=== PATIENT | male | born 1940 | race Caucasian/White ===

== ENCOUNTER 2022-06-27 16:57 | Inpatient (IN) ==
--- NOTE | 2022-06-27 17:29 | Emergency Department Note ---
Impression & Plan COPD (chronic obstructive pulmonary disease), CHF (congestive heart failure), Dyspnea, Tobacco use ED Provider Note NAME: KERRY BROWN AGE: 81 SEX: M : 1940 ARRIVES VIA: Walk-In INFORMANT: [Patient][, ] ED PROVIDER(S): [Kiko Ramirez MD] Chief Complaint: Shortness of breath HPI: Patient presents due to concern for shortness of breath which is been ongoing approximately 1 week in duration. The patient is accompanied by his daughter who states that this has gotten progressively worse. The patient has had mild productive cough but it is clear sputum. The patient does still smoke a pipe. The patient denies any prior history of COPD. The patient does have prior history of a "minor heart attack" which did not require any stenting or bypass. 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 Patient denies any current chest pains but does complain of exertional dyspnea. No orthopnea. The patient denies any leg swelling or calf pain. No history of DVT or PE. ROS: See HPI for pertinent positives and negatives. A total of 10 systems were reviewed and otherwise negative. Past medical history: See below Surgical history: See below Social history: See below Physical Exam: GENERAL: Mild distress, tachypneic EYE EXAM: Normal conjunctiva. PERRL, no anisocoria and EOM's grossly intact w/o pain. NECK: Supple, no nuchal rigidity, no adenopathy, non-tender. No signs of meningismus. FROM of the neck with good chin to chest and neck extension. No s tridor. LUNGS: Diffuse wheezing throughout, mild tachypnea. HEART: Tachycardic and regular, no MRG. ABDOMEN: Abdomen soft, non-tender, normo-active bowel sounds, no masses, no rebound or guarding. BACK: No CVA TTP. SKIN: No rashes and no bruising. UPPER EXTREMITIES: Upper extremities are grossly normal. LOWER EXTREMITIES: Grossly normal, no edema. NEURO EXAM: A&O x3, cranial nerves II-XII grossly intact, normal speech, moves all 4 extremities. Differential diagnoses: Reactive airway disease, pneumonia, pneumothorax, COPD, CHF, infections, cardiac ischemia, pulmonary embolism, musculoskeletal, gastrointestinal, as well as other pathologies. Course: Patient was seen and evaluated the bedside. Full history physical exam was performed. EKG interpreted by me Sinus tachycardia, rate of 120, normal [place] and QRS, normal axis, no obvious ST elevations. Imaging Studies: See Below Cardiac monitoring: An order was placed for continuous cardiac monitoring. The monitor shows a rate of 105 with tachycardic and regular rhythm. MDM: Patient was seen due to concern for shortness of breath. Blood work is obtained. Patient may have undiagnosed COPD. Patient was ordered IV fluids breathing treatment, IV mag and steroids. COVID test also ordered. Patient's chest x-ray showed concern for pulmonary edema as the patient's IV fluids were stopped. A BNP was added. Patient has a white count of 12 with a normal H&H and platelet count. The patient was ordered Rocephin as there was concern for consolidation seen on his chest x-ray. Patient's VBG did not show any hypercarbia. VBG pH was normal. Patient did have an elevated BUN to creatinine ratio. The patient's initial troponin was 53. The patient did have an elevated BNP greater than 4700. I did speak with the on-call hospitalist and the patient was admitted to the medicine service. Dr. Denney did order the patient Lasix. Past Med/Surg History Medical History Coronary artery disease Surgical History No pertinent past surgical history Social History Smoking Status: Current every day smoker Tobacco Type: Pipe Preferred Language: Japanese Feels Safe at Home: Yes Allergies Allergies Allergy/AdvReac Type Severity Reaction Status Date / Time No Known Allergies Allergy Verified 06/27/22 19:54 Home Meds Home Medications Medication Instructions Recorded Confirmed aspirin 81 mg tablet,delayed 81 mg PO DAILY 06/27/22 06/27/22 release atorvastatin 10 mg tablet 10 mg PO DAILY 06/27/22 06/27/22 lisinopril 20 mg tablet 20 mg PO DAILY 06/27/22 06/27/22 meclizine 25 mg tablet 25 mg PO TID PRN Dizziness 06/27/22 06/27/22 sertraline 50 mg tablet 50 mg PO DAILY 06/27/22 06/27/22 Results & Data (ED) Vital Signs Vital Signs - 24 hr 06/27/22 17:07 06/27/22 17:36 06/27/22 17:36 Temperature 36.3 C L Temperature Source Temporal Artery Scan Pulse Rate 113 H Pulse Rate [Finger] 118 H Pulse Rate from SpO2 Sensor Pulse Rhythm Respiratory Rate 16 29 H Respiratory Effort / Characteristics Non-Labored Respiratory Depth Normal Blood Pressure 159/104 H Blood Pressure [Left Arm] 141/92 H Blood Pressure Mean 122 Blood Pressure Mean [Left Arm] 108 Blood Pressure Position [Left Arm] Sitting Pulse Oximetry 95 94 95 Oxygen Delivery Method Room Air Room Air Room Air Sepsis Recent Fever Within 48 Hours No Sepsis New/Unexplained Change in Mental Status No Sepsis Action Taken by Nursing No Action Required 06/27/22 17:54 06/27/22 19:35 Temperature Temperature Source Pulse Rate 116 H 103 H Pulse Rate [Finger] Pulse Rate from SpO2 Sensor 105 H Pulse Rhythm Regular Respiratory Rate 28 H 24 Respiratory Effort / Characteristics Respiratory Depth Blood Pressure 134/95 Blood Pressure [Left Arm] Blood Pressure Mean 108 Blood Pressure Mean [Left Arm] Blood Pressure Position [Left Arm] Pulse Oximetry 94 97 Oxygen Delivery Method Room Air Room Air Sepsis Recent Fever Within 48 Hours Sepsis New/Unexplained Change in Mental Status Sepsis Action Taken by Usp Medications Current Medication List: was personally reviewed by me Laboratory Data Attestation: I reviewed the patient's lab results. Result diagrams: 06/27/22 18:20 06/27/22 18:20 Lab Results 06/27/22 06/27/22 06/27/22 Range/Units 18:20 18:20 18:20 WBC 12.55 H (4.8-10.8) K/ul RBC 4.98 (4.63-6.08) M/uL Hgb 14.6 (14.0-18.0) g/dl Hct 44.2 (40.1-51.0) % MCV 88.8 (80.0-100.0) fL MCH 29.3 (25.0-34.0) pg MCHC 33.0 (32.0-36.0) g/dL RDW Std Deviation 50.4 H (36.4-46.3) fL RDW Coeff of Yovana 15.5 H (11.5-14.5) % Plt Count 208 (130-400) K/uL MPV 11.3 (9.4-12.4) fL Immature Gran % (Auto) 0.3 % Neut % (Auto) 82.3 % Lymph % (Auto) 7.4 % [place] % (Auto) 9.0 % Eos % (Auto) 0.4 % Baso % (Auto) 0.6 % Neut # (Auto) 10.32 H (1.4-6.5) K/uL Lymph # (Auto) 0.93 L (1.2-3.4) K/uL [place] # (Auto) 1.13 H (0.24-0.82) K/uL Eos # (Auto) 0.05 (0-0.50) K/uL Baso # (Auto) 0.08 (0-0.2) K/uL Immature Gran # (Auto) 0.04 H (0.00-0.02) K/uL PT 12.9 H (9.0-12.0) Seconds INR 1.2 H (0.9-1.1) APTT 29.9 (21.0-31.0) Seconds PTT Ratio 1.1 ABG pH (7.35-7.45) ABG pCO2 (35-46) mmHg ABG pO2 (80-95) mmHg ABG HCO3 (19-24) mmol/L ABG O2 Saturation (90-95) % ABG Base Excess (-9-1.8) mEq/L Kendell Test (Pos) VBG pH (7.36-7.41) VBG pCO2 (38-50) mmHg VBG pO2 mmHg VBG HCO3 mmol/L VBG O2 Saturation % VBG Base Excess mEq/L Oxygen Given Sodium 144 (136-145) mmol/L Potassium 3.9 (3.5-5.1) mmol/L Chloride 114 H (98-107) mmol/L Carbon Dioxide 22 (21-32) mmol/L Anion Gap 8 (3-11) BUN 38 H (6-23) mg/dl Creatinine 1.11 (0.6-1.4) mg/dl Est Cr Clr Drug Dosing 43.7 ml/min Est GFR ( Amer) 71.8 ml/min Est GFR (Non-Af Amer) 61.9 ml/min BUN/Creatinine Ratio 34.2 H (10-20) Glucose 122 H (70-99(Fasting)) mg/dl Lactate (0.4-2.0) mmol/L Calcium 9.2 (8.5-10.1) mg/dl Magnesium 2.0 (1.7-2.4) mg/dl Total Bilirubin 0.6 (0.2-1.0) mg/dl AST 51 H (13-39) U/L ALT 69 H (7-52) U/L Alkaline Phosphatase 78 (34-104) U/L Troponin I High Sens 53.7 H* (0-20) pg/ml B-Natriuretic Peptide (0-100) pg/ml Total Protein 6.7 (6.0-8.3) gm/dl Albumin 3.8 (3.4-5.0) gm/dl Globulin 2.9 (2.5-4.0) gm/dl Albumin/Globulin Ratio 1.3 (0.9-2) Procalcitonin (0-0.5) ng/ml Urine Color Urine Appearance (Clear) Urine pH (4.5-7.5) Ur Specific [place] (1.000-1.030) Urine Protein (Negative) Urine Glucose (UA) (Negative) Urine Ketones (Negative) Urine Blood (Negative) Urine Nitrite (Negative) Urine Bilirubin (Negative) Urine Urobilinogen (Negative) Ur Leukocyte Esterase (Negative) Urine WBC (Auto) (0-5) /hpf Urine RBC (Auto) (0-4) /hpf U Hyaline Cast (Auto) (0-5) /lpf U Epithel Cells (Auto) (0-5) /lpf Urine Bacteria (Auto) (Negative) Ur Renal Epithelial Cell WBC Casts (0) /lpf Urine Mucus (None Prsent) SARS-CoV-2, RNA, NAAT (NEGATIVE) 06/27/22 06/27/22 06/27/22 Range/Units 18:20 18:20 19:34 WBC (4.8-10.8) K/ul RBC (4.63-6.08) M/uL Hgb (14.0-18.0) g/dl Hct (40.1-51.0) % MCV (80.0-100.0) fL MCH (25.0-34.0) pg MCHC (32.0-36.0) g/dL RDW Std Deviation (36.4-46.3) fL RDW Coeff of Yovana (11.5-14.5) % Plt Count (130-400) K/uL MPV (9.4-12.4) fL Immature Gran % (Auto) % Neut % (Auto) % Lymph % (Auto) % [place] % (Auto) % Eos % (Auto) % Baso % (Auto) % Neut # (Auto) (1.4-6.5) K/uL Lymph # (Auto) (1.2-3.4) K/uL [place] # (Auto) (0.24-0.82) K/uL Eos # (Auto) (0-0.50) K/uL Baso # (Auto) (0-0.2) K/uL Immature Gran # (Auto) (0.00-0.02) K/uL PT (9.0-12.0) Seconds INR (0.9-1.1) APTT (21.0-31.0) Seconds PTT Ratio ABG pH (7.35-7.45) ABG pCO2 (35-46) mmHg ABG pO2 (80-95) mmHg ABG HCO3 (19-24) mmol/L ABG O2 Saturation (90-95) % ABG Base Excess (-9-1.8) mEq/L Kendell Test (Pos) VBG pH 7.41 (7.36-7.41) VBG pCO2 36 L (38-50) mmHg VBG pO2 62 mmHg VBG HCO3 23 mmol/L VBG O2 Saturation 93.3 % VBG Base Excess -1.4 mEq/L Oxygen Given Sodium (136-145) mmol/L Potassium (3.5-5.1) mmol/L Chloride (98-107) mmol/L Carbon Dioxide (21-32) mmol/L Anion Gap (3-11) BUN (6-23) mg/dl Creatinine (0.6-1.4) mg/dl Est Cr Clr Drug Dosing ml/min Est GFR ( Amer) ml/min Est GFR (Non-Af Amer) ml/min BUN/Creatinine Ratio (10-20) Glucose (70-99(Fasting)) mg/dl Lactate (0.4-2.0) mmol/L Calcium (8.5-10.1) mg/dl Magnesium (1.7-2.4) mg/dl Total Bilirubin (0.2-1.0) mg/dl AST (13-39) U/L ALT (7-52) U/L Alkaline Phosphatase (34-104) U/L Troponin I High Sens (0-20) pg/ml B-Natriuretic Peptide > 4700 H (0-100) pg/ml Total Protein (6.0-8.3) gm/dl Albumin (3.4-5.0) gm/dl Globulin (2.5-4.0) gm/dl Albumin/Globulin Ratio (0.9-2) Procalcitonin (0-0.5) ng/ml Urine Color Urine Appearance (Clear) Urine pH (4.5-7.5) Ur Specific [place] (1.000-1.030) Urine Protein (Negative) Urine Glucose (UA) (Negative) Urine Ketones (Negative) Urine Blood (Negative) Urine Nitrite (Negative) Urine Bilirubin (Negative) Urine Urobilinogen (Negative) Ur Leukocyte Esterase (Negative) Urine WBC (Auto) (0-5) /hpf Urine RBC (Auto) (0-4) /hpf U Hyaline Cast (Auto) (0-5) /lpf U Epithel Cells (Auto) (0-5) /lpf Urine Bacteria (Auto) (Negative) Ur Renal Epithelial Cell WBC Casts (0) /lpf Urine Mucus (None Prsent) SARS-CoV-2, RNA, NAAT NEGATIVE (NEGATIVE) 06/27/22 06/27/22 06/27/22 Range/Units 20:03 20:03 20:03 WBC (4.8-10.8) K/ul RBC (4.63-6.08) M/uL Hgb (14.0-18.0) g/dl Hct (40.1-51.0) % MCV (80.0-100.0) fL MCH (25.0-34.0) pg MCHC (32.0-36.0) g/dL RDW Std Deviation (36.4-46.3) fL RDW Coeff of Yovana (11.5-14.5) % Plt Count (130-400) K/uL MPV (9.4-12.4) fL Immature Gran % (Auto) % Neut % (Auto) % Lymph % (Auto) % [place] % (Auto) % Eos % (Auto) % Baso % (Auto) % Neut # (Auto) (1.4-6.5) K/uL Lymph # (Auto) (1.2-3.4) K/uL [place] # (Auto) (0.24-0.82) K/uL Eos # (Auto) (0-0.50) K/uL Baso # (Auto) (0-0.2) K/uL Immature Gran # (Auto) (0.00-0.02) K/uL PT (9.0-12.0) Seconds INR (0.9-1.1) APTT (21.0-31.0) Seconds PTT Ratio ABG pH (7.35-7.45) ABG pCO2 (35-46) mmHg ABG pO2 (80-95) mmHg ABG HCO3 (19-24) mmol/L ABG O2 Saturation (90-95) % ABG Base Excess (-9-1.8) mEq/L Kendell Test (Pos) VBG pH (7.36-7.41) VBG pCO2 (38-50) mmHg VBG pO2 mmHg VBG HCO3 mmol/L VBG O2 Saturation % VBG Base Excess mEq/L Oxygen Given Sodium (136-145) mmol/L Potassium (3.5-5.1) mmol/L Chloride (98-107) mmol/L Carbon Dioxide (21-32) mmol/L Anion Gap (3-11) BUN (6-23) mg/dl Creatinine (0.6-1.4) mg/dl Est Cr Clr Drug Dosing ml/min Est GFR ( Amer) ml/min Est GFR (Non-Af Amer) ml/min BUN/Creatinine Ratio (10-20) Glucose (70-99(Fasting)) mg/dl Lactate 0.9 (0.4-2.0) mmol/L Calcium (8.5-10.1) mg/dl Magnesium (1.7-2.4) mg/dl Total Bilirubin (0.2-1.0) mg/dl AST (13-39) U/L ALT (7-52) U/L Alkaline Phosphatase (34-104) U/L Troponin I High Sens 46.1 H (0-20) pg/ml B-Natriuretic Peptide (0-100) pg/ml Total Protein (6.0-8.3) gm/dl Albumin (3.4-5.0) gm/dl Globulin (2.5-4.0) gm/dl Albumin/Globulin Ratio (0.9-2) Procalcitonin < 0.05 (0-0.5) ng/ml Urine Color Urine Appearance (Clear) Urine pH (4.5-7.5) Ur Specific [place] (1.000-1.030) Urine Protein (Negative) Urine Glucose (UA) (Negative) Urine Ketones (Negative) Urine Blood (Negative) Urine Nitrite (Negative) Urine Bilirubin (Negative) Urine Urobilinogen (Negative) Ur Leukocyte Esterase (Negative) Urine WBC (Auto) (0-5) /hpf Urine RBC (Auto) (0-4) /hpf U Hyaline Cast (Auto) (0-5) /lpf U Epithel Cells (Auto) (0-5) /lpf Urine Bacteria (Auto) (Negative) Ur Renal Epithelial Cell WBC Casts (0) /lpf Urine Mucus (None Prsent) SARS-CoV-2, RNA, NAAT (NEGATIVE) 06/27/22 06/27/22 Range/Units 20:41 20:57 WBC (4.8-10.8) K/ul RBC (4.63-6.08) M/uL Hgb (14.0-18.0) g/dl Hct (40.1-51.0) % MCV (80.0-100.0) fL MCH (25.0-34.0) pg MCHC (32.0-36.0) g/dL RDW Std Deviation (36.4-46.3) fL RDW Coeff of Yovana (11.5-14.5) % Plt Count (130-400) K/uL MPV (9.4-12.4) fL Immature Gran % (Auto) % Neut % (Auto) % Lymph % (Auto) % [place] % (Auto) % Eos % (Auto) % Baso % (Auto) % Neut # (Auto) (1.4-6.5) K/uL Lymph # (Auto) (1.2-3.4) K/uL [place] # (Auto) (0.24-0.82) K/uL Eos # (Auto) (0-0.50) K/uL Baso # (Auto) (0-0.2) K/uL Immature Gran # (Auto) (0.00-0.02) K/uL PT (9.0-12.0) Seconds INR (0.9-1.1) APTT (21.0-31.0) Seconds PTT Ratio ABG pH 7.38 (7.35-7.45) ABG pCO2 36 (35-46) mmHg ABG pO2 85 (80-95) mmHg ABG HCO3 21 (19-24) mmol/L ABG O2 Saturation 98.4 H (90-95) % ABG Base Excess -3.3 (-9-1.8) mEq/L Kendell Test Pos (Pos) VBG pH (7.36-7.41) VBG pCO2 (38-50) mmHg VBG pO2 mmHg VBG HCO3 mmol/L VBG O2 Saturation % VBG Base Excess mEq/L Oxygen Given ROOM AIR Sodium (136-145) mmol/L Potassium (3.5-5.1) mmol/L Chloride (98-107) mmol/L Carbon Dioxide (21-32) mmol/L Anion Gap (3-11) BUN (6-23) mg/dl Creatinine (0.6-1.4) mg/dl Est Cr Clr Drug Dosing ml/min Est GFR ( Amer) ml/min Est GFR (Non-Af Amer) ml/min BUN/Creatinine Ratio (10-20) Glucose (70-99(Fasting)) mg/dl Lactate (0.4-2.0) mmol/L Calcium (8.5-10.1) mg/dl Magnesium (1.7-2.4) mg/dl Total Bilirubin (0.2-1.0) mg/dl AST (13-39) U/L ALT (7-52) U/L Alkaline Phosphatase (34-104) U/L Troponin I High Sens (0-20) pg/ml B-Natriuretic Peptide (0-100) pg/ml Total Protein (6.0-8.3) gm/dl Albumin (3.4-5.0) gm/dl Globulin (2.5-4.0) gm/dl Albumin/Globulin Ratio (0.9-2) Procalcitonin (0-0.5) ng/ml Urine Color Yellow Urine Appearance Clear (Clear) Urine pH 5.0 (4.5-7.5) Ur Specific [place] 1.014 (1.000-1.030) Urine Protein Trace H (Negative) Urine Glucose (UA) Negative (Negative) Urine Ketones Negative (Negative) Urine Blood Negative (Negative) Urine Nitrite Negative (Negative) Urine Bilirubin Negative (Negative) Urine Urobilinogen Negative (Negative) Ur Leukocyte Esterase 2+ H (Negative) Urine WBC (Auto) 10-30 H (0-5) /hpf Urine RBC (Auto) 0-4 (0-4) /hpf U Hyaline Cast (Auto) >30 H (0-5) /lpf U Epithel Cells (Auto) >30 H (0-5) /lpf Urine Bacteria (Auto) Negative (Negative) Ur Renal Epithelial Cell Not Reportable WBC Casts 20-30 H (0) /lpf Urine Mucus Present A (None Prsent) SARS-CoV-2, RNA, NAAT (NEGATIVE) Administered Medications Discontinued Medications Albuterol (Albut/Ipratrop 3mg/0.5mg Neb 3 Ml Vial) 12 ml INH ONE STA Stop: 06/27/22 17:41 Last Admin: 06/27/22 18:20 Dose: 12 ml Documented By: LESLIE Furosemide (Furosemide 40 Mg/4 Ml Vial) 40 mg IV ONE ONE Stop: 06/27/22 19:44 Last Admin: 06/27/22 20:07 Dose: 40 mg Documented By: Sodium Chloride (Nss 1000ml) 1,000 mls @ 999 mls/hr IV .Q1H1M FRANCISCO Stop: 06/27/22 18:45 Last Admin: 06/27/22 18:37 Dose: Not Given Documented By: LESLIE Magnesium Sulfate/Dextrose (Magnesium Sulfate / D5w) 1 gm in 100 mls @ 100 mls/hr IV Q1H FRANCISCO Stop: 06/27/22 19:44 Last Infusion: 06/27/22 20:30 Dose: 0 mls/hr Documented By: Admin: 06/27/22 19:29 Dose: 100 mls/hr Documented By: Infusion: 06/27/22 19:21 Dose: 100 mls/hr Documented By: Admin: 06/27/22 18:21 Dose: 100 mls/hr Documented By: HEW Ceftriaxone Sodium (Rocephin) 2,000 mg in 70 mls @ 140 mls/hr IV NOW STA Stop: 06/27/22 18:54 Last Infusion: 06/27/22 21:58 Dose: 0 mls/hr Documented By: Admin: 06/27/22 21:06 Dose: 140 mls/hr Documented By: Lorazepam (Lorazepam 2 Mg/1 Ml Vial) 0.25 mg IV NOW STA; Protocol Stop: 06/27/22 17:41 Last Admin: 06/27/22 18:37 Dose: 0.25 mg Documented By: LESLIE Methylprednisolone (Methylprednisolone 125 Mg/2 Ml Vial) 125 mg IV NOW STA Stop: 06/27/22 17:41 Last Admin: 06/27/22 18:21 Dose: 125 mg Documented By: LESLIE Potassium Chloride (Potassium Chloride Crtab 20 Meq Tabcr) 20 meq PO NOW STA Stop: 06/27/22 19:44 Last Admin: 06/27/22 20:11 Dose: 20 meq Documented By: Imaging Data Radiologist's Impression: Chest X-Ray 06/27/22 17:41 XR chest 1V portable HISTORY: 81 years-old Male Dyspnea acute shortness of breath COMPARISON: Chest radiograph 04/29/2021 TECHNIQUE: Portable AP view of the chest FINDINGS: Cardiac silhouette is enlarged. Pulmonary vascular congestion with interstitial coarsening. Layering pleural effusions with right greater left bibasilar and right midlung consolidation. Degenerative changes of the shoulders and spine. IMPRESSION: 1. Cardiomegaly with pulmonary edema. 2. Bilateral pleural effusions with right greater than left bibasilar and right midlung consolidation. ACT 112: Negative or not required by law. The above report was generated using voice recognition software. It may contain grammatical, syntax or spelling errors. Electronically signed by: Pramod Browning M.D. 06/27/2022 6:12 PM Discharge Plan Visit Data Chief Complaint: Anxiety Stated Complaint: SOB, SHAKING, DIZZY, HEADAACHE ED Provider: Kiko Ramirez Discharge Problem: COPD (chronic obstructive pulmonary disease), CHF (congestive heart failure), Dyspnea, Tobacco use Patient Disposition: Admitted As Inpatient Forms Stand Alone Forms: [facility], Suicide Prevention Resources Prescriptions Prescriptions: No Action atorvastatin 10 mg tablet 10 mg PO DAILY lisinopril 20 mg tablet 20 mg PO DAILY meclizine 25 mg tablet 25 mg PO TID PRN (Reason: Dizziness) sertraline 50 mg tablet 50 mg PO DAILY aspirin 81 mg Tablet,Delayed Release (Dr/Ec) 81 mg PO DAILY Referrals Referrals: Triston Spears DO [Primary Care Provider] -
[2022-06-27] MEDS ORDERED: ALBUT/IPRATROP 3MG/0.5MG NEB 3 ML VIAL INH STA (17:40)
[2022-06-27] MEDS ORDERED: methylPREDNISolone 125 MG/2 ML VIAL IV STA (17:40)
[2022-06-27] MEDS ORDERED: LORazepam 2 MG/1 ML VIAL IV STA (17:40)
[2022-06-27] MEDS ORDERED: SODIUM CHLORIDE 0.9% 1000ML 1,000 ML IV SCH (17:45)
--- NOTE | 2022-06-27 18:13 | XRay Report ---
XR chest 1V portable HISTORY: 81 years-old Male Dyspnea acute shortness of breath COMPARISON: Chest radiograph 04/29/2021 TECHNIQUE: Portable AP view of the chest FINDINGS: Cardiac silhouette is enlarged. Pulmonary vascular congestion with interstitial coarsening. Layering pleural effusions with right greater left bibasilar and right midlung consolidation. Degenerative jessie nges of the shoulders and spine. IMPRESSION: 1. Cardiomegaly with pulmonary edema. 2. Bilateral pleural effusions with right greater than left bibasilar and right midlung consolidation . ACT 112: Negative or not required by law. The above report was generated using voice recognition software. It may contain grammatical, syntax o r spelling errors. Electronically signed by: Pramod Browning M.D. 06/27/2022 6:12 PM
[2022-06-27] MEDS: MAGNESIUM SULFATE / D5W 1 GM/100 ML BAG IV SCH ×2 (18:21→19:29)
[2022-06-27 18:29] LABS: Base Excess VBG -1.4 mEq/L; HCO3 VBG 23 mmol/L; Oxygen Saturation VBG 93.3 %; PCO2 VBG 36 mmHg (38-50); PO2 VBG 62 mmHg; pH VBG 7.41 (7.36-7.41)
[2022-06-27 18:33] LABS: Basophils # (auto) 0.08 K/uL (0-0.2); Basophils % (auto) 0.6 %; Eosinophils # (auto) 0.05 K/uL (0-0.50); Eosinophils % (auto) 0.4 %; Hematocrit (blood only) 44.2 % (40.1-51.0); Hemoglobin 14.6 g/dl (14.0-18.0); Immature Granulocytes # (auto) 0.04 K/uL (0.00-0.02); Immature Granulocytes % (auto) 0.3 %; Lymphocytes # (auto) 0.93 K/uL (1.2-3.4); Lymphocytes % (auto) 7.4 %; Mean Corpuscular Hemoglobin 29.3 pg (25.0-34.0); Mean Corpuscular Volume 88.8 fL (80.0-100.0); Mean Platelet Volume 11.3 fL (9.4-12.4); Monocytes # (auto) 1.13 K/uL (0.24-0.82); Neutrophils # (auto) 10.32 K/uL (1.4-6.5); Neutrophils % (auto) 82.3 %; Platelet Count 208 K/uL (130-400); RDW Coefficient of Variation 15.5 % (11.5-14.5); RDW Standard Deviation 50.4 fL (36.4-46.3); Red Blood Count 4.98 M/uL (4.63-6.08); White Blood Count 12.55 K/ul (4.8-10.8)
[2022-06-27 18:41] LABS: INR 1.2 (0.9-1.1); Partial Thromboplastin Ratio 1.1; Partial Thromboplastin Time 29.9 Seconds (21.0-31.0); Prothrombin Time 12.9 Seconds (9.0-12.0)
[2022-06-27 18:49] LABS: Albumin Globulin Ratio 1.3 (0.9-2); Albumin Level 3.8 gm/dl (3.4-5.0); BUN Creatinine Ratio 34.2 (10-20); Bilirubin,Total 0.6 mg/dl (0.2-1.0); Calcium 9.2 mg/dl (8.5-10.1); Creatinine Clr Calc Pharmacy 43.7 ml/min; Est GFR (African American) 71.8 ml/min; Est GFR (Non-African American) 61.9 ml/min; Globulin 2.9 gm/dl (2.5-4.0); Potassium 3.9 mmol/L (3.5-5.1); Total Protein 6.7 gm/dl (6.0-8.3)
[2022-06-27 18:58] LABS: Troponin I High Sensitivity 53.7 pg/ml (0-20)
[2022-06-27] MEDS ORDERED: POTASSIUM CHLORIDE CRTAB 20 MEQ TABCR PO STA (19:43)
[2022-06-27] MEDS ORDERED: FUROSEMIDE 40 MG/4 ML VIAL IV ONE (19:43)
[2022-06-27] MEDS: cefTRIAXone SODIUM 2,000 MG/70 ML BAG IV STA ×2 (20:32→21:06)
[2022-06-27 21:04] LABS: Base Excess ABG -3.3 mEq/L (-9-1.8); HCO3 ABG 21 mmol/L (19-24); Oxygen Saturation ABG 98.4 % (90-95); PCO2 ABG 36 mmHg (35-46); PO2 ABG 85 mmHg (80-95); pH ABG 7.38 (7.35-7.45)
[2022-06-27 21:08] LABS: Allen Test Pos (Pos)
[2022-06-27 21:09] LABS: Appearance Urine Clear (Clear); Bacteria Urine Automated Negative (Negative); Bilirubin Urine Negative (Negative); Blood Urine Negative (Negative); Color Urine Yellow; Epithelial Cell Urine Auto >30 /lpf (0-5); Glucose Urine UA Negative (Negative); Ketones Urine Negative (Negative); Leukocyte Esterase Urine 2+ (Negative); Nitrite Urine Negative (Negative); Protein Urine Trace (Negative); RBC Urine Automated 0-4 /hpf (0-4); Specific Gravity Urine 1.014 (1.000-1.030); Urobilinogen Urine Negative (Negative)
[2022-06-27 21:21] LABS: Mucus Urine Present (None Prsent)
[2022-06-27 21:22] LABS: Cast Urine Automated >30 /lpf (0-5); White Blood Cell Casts Urine 20-30 /lpf (0)
--- NOTE | 2022-06-27 21:37 | History & Physical Report ---
Date of Service June 27, 2022 Assessment & Plan (1) Acute hypoxemic respiratory failure: Plan: Secondary to acute CHF ? Precipitated by viral bronchitis hx CAD status post stent, last outpatient follow-up with [facility] program engineer was in 2012 hypertension, slight elevated hyperlipidemia, on statin Rx hx beta-shanna intolerance (bradycardia) as per records Hyperglycemia likely secondary to prediabetes, hemoglobin A1c of 5.7 from 2009 ongoing tobacco abuse PCU Supplemental O2 Baseline ABG Diuretic Rx strict I/Os, daily weights, CHF education Initiate low-dose beta-shanna if heart rate continues to be uncontrolled TTE, Cardiology consult Re: CHF supportive management for presumptive viral bronchitis Update hemoglobin A1c DVT prophylaxis. Lovenox subcu Full code Patient daughter requesting updates from providers. Ms. Carolyn Burroughs, contact #[phone]. Total critical care time was 40 minutes. Text document was generated using [employer]ösler mini[employer] voice recognition software. It may contain grammatical or spelling errors. Kindly contact undersigned for clarification of any documentation item in question. History of Present Illness Chief Complaint: Shortness of breath Primary Care Provider: Triston Spears, History obtained from patient, family, and records. Medical history significant for CAD status post stent, hypertension, hyperlipidemia, beta-shanna intolerance (bradycardia) as per records, ongoing tobacco abuse. 1 week history of cough symptoms productive of clear sputum. No chest pain. Worsening shortness of breath. No unusual fluid retention. No known recent sick contacts. Patient completed COVID-19 vaccination. Patient received Albuterol, methylprednisolone, and ceftriaxone at the ER for possible COPD exacerbation. Lorazepam given for anxiety. Patient currently lethargic. O2 sats noted to be 80s on room air. Medical History as above Surgical History : Leg fracture surgery Family History : Heart disease Personal/Social history : Ongoing tobacco pipe use, no EtOH intake, retired factory employee Allergies Allergy/AdvReac Type Severity Reaction Status Date / Time No Known Allergies Allergy Verified 06/27/22 19:54 Home Medications Medication Instructions Recorded Confirmed Type aspirin 81 mg tablet,delayed 81 mg PO DAILY 06/27/22 06/27/22 History release atorvastatin 10 mg tablet 10 mg PO DAILY 06/27/22 06/27/22 History lisinopril 20 mg tablet 20 mg PO DAILY 06/27/22 06/27/22 History meclizine 25 mg tablet 25 mg PO TID PRN Dizziness 06/27/22 06/27/22 History sertraline 50 mg tablet 50 mg PO DAILY 06/27/22 06/27/22 History Past Med/Surg History Medical History Coronary artery disease Surgical History No pertinent past surgical history Social History Smoking Status: Heavy tobacco smoker Tobacco Type: Pipe Second Hand Exposure: No; Do You Dip or Chew Tobacco: No; Tobacco Cessation Education Requested by Patient: Yes Hx Alcohol Use: No Hx Substance Use: No Preferred Language: Setswana Communication Ability: Effective Patient Representative Required: No Beliefs That Will Affect Care: None Current Living Situation: Alone Other Information That Helps Us Care for You: No Feels Safe at Home: Yes Safety Concerns: Feels Safe At This Time Assistive Devices: Glasses Review of Systems Review of Systems: Could not be reliably obtained secondary to lethargy and hearing impairment Physical Exam Physical Exam: GENERAL: Lethargic, slightly hard of hearing, minimal respiratory distress SKIN: Normal color, warm HEENT: [place] palpebral conjunctivae, no ptosis, dry buccal mucosa, nasal cannula in place NECK : Supple, no tenderness CHEST : Decreased breath sounds, expiratory wheezes, no tenderness HEART : Tachycardic, no obvious murmurs ABDOMEN: Some distention, nontender EXTREMITIES : No LE swelling, no LE tenderness, no other conspicuous deformities noted NEUROLOGIC : Lethargic, no facial asymmetry, gait and stance not assessed Results & Data Results & Data ([facility]) Vital Signs (Past 12 Hours) Vital Signs Temp Pulse Pulse Resp BP BP Pulse Ox 06/27/22 19:35 103 H 24 134/95 97 06/27/22 17:54 116 H 28 H 94 06/27/22 17:36 118 H 29 H 141/92 H 95 06/27/22 17:36 94 06/27/22 17:07 36.3 C L 113 H 16 159/104 H 95 O2 Del Method 06/27/22 19:35 Room Air 06/27/22 17:54 Room Air 06/27/22 17:36 Room Air 06/27/22 17:36 Room Air 06/27/22 17:07 Room Air Laboratory Results Laboratory Results WBC 12.55 K/ul (4.8-10.8) H 06/27/22 18:20 RBC 4.98 M/uL (4.63-6.08) 06/27/22 18:20 Hgb 14.6 g/dl (14.0-18.0) 06/27/22 18:20 Hct 44.2 % (40.1-51.0) 06/27/22 18:20 MCV 88.8 fL (80.0-100.0) 06/27/22 18:20 MCH 29.3 pg (25.0-34.0) 06/27/22 18:20 MCHC 33.0 g/dL (32.0-36.0) 06/27/22 18:20 RDW Std Deviation 50.4 fL (36.4-46.3) H 06/27/22 18:20 RDW Coeff of Yovana 15.5 % (11.5-14.5) H 06/27/22 18:20 Plt Count 208 K/uL (130-400) 06/27/22 18:20 MPV 11.3 fL (9.4-12.4) 06/27/22 18:20 Immature Gran % (Auto) 0.3 % 06/27/22 18:20 Neut % (Auto) 82.3 % 06/27/22 18:20 Lymph % (Auto) 7.4 % 06/27/22 18:20 Bucks % (Auto) 9.0 % 06/27/22 18:20 Eos % (Auto) 0.4 % 06/27/22 18:20 Baso % (Auto) 0.6 % 06/27/22 18:20 Neut # (Auto) 10.32 K/uL (1.4-6.5) H 06/27/22 18:20 Lymph # (Auto) 0.93 K/uL (1.2-3.4) L 06/27/22 18:20 Bucks # (Auto) 1.13 K/uL (0.24-0.82) H 06/27/22 18:20 Eos # (Auto) 0.05 K/uL (0-0.50) 06/27/22 18:20 Baso # (Auto) 0.08 K/uL (0-0.2) 06/27/22 18:20 Immature Gran # (Auto) 0.04 K/uL (0.00-0.02) H 06/27/22 18:20 PT 12.9 Seconds (9.0-12.0) H 06/27/22 18:20 INR 1.2 (0.9-1.1) H 06/27/22 18:20 APTT 29.9 Seconds (21.0-31.0) 06/27/22 18:20 PTT Ratio 1.1 06/27/22 18:20 ABG pH 7.38 (7.35-7.45) 06/27/22 20:57 ABG pCO2 36 mmHg (35-46) 06/27/22 20:57 ABG pO2 85 mmHg (80-95) 06/27/22 20:57 ABG HCO3 21 mmol/L (19-24) 06/27/22 20:57 ABG O2 Saturation 98.4 % (90-95) H 06/27/22 20:57 ABG Base Excess -3.3 mEq/L (-9-1.8) 06/27/22 20:57 Kendell Test Pos (Pos) 06/27/22 20:57 VBG pH 7.41 (7.36-7.41) 06/27/22 18:20 VBG pCO2 36 mmHg (38-50) L 06/27/22 18:20 VBG pO2 62 mmHg 06/27/22 18:20 VBG HCO3 23 mmol/L 06/27/22 18:20 VBG O2 Saturation 93.3 % 06/27/22 18:20 VBG Base Excess -1.4 mEq/L 06/27/22 18:20 Oxygen Given ROOM AIR 06/27/22 20:57 Sodium 144 mmol/L (136-145) 06/27/22 18:20 Potassium 3.9 mmol/L (3.5-5.1) 06/27/22 18:20 Chloride 114 mmol/L (98-107) H 06/27/22 18:20 Carbon Dioxide 22 mmol/L (21-32) 06/27/22 18:20 Anion Gap 8 (3-11) 06/27/22 18:20 BUN 38 mg/dl (6-23) H 06/27/22 18:20 Creatinine 1.11 mg/dl (0.6-1.4) 06/27/22 18:20 Est Cr Clr Drug Dosing 43.7 ml/min 06/27/22 18:20 Est GFR ( Amer) 71.8 ml/min 06/27/22 18:20 Est GFR (Non-Af Amer) 61.9 ml/min 06/27/22 18:20 BUN/Creatinine Ratio 34.2 (10-20) H 06/27/22 18:20 Glucose 122 mg/dl (70-99(Fasting)) H 06/27/22 18:20 Lactate 0.9 mmol/L (0.4-2.0) 06/27/22 20:03 Calcium 9.2 mg/dl (8.5-10.1) 06/27/22 18:20 Magnesium 2.0 mg/dl (1.7-2.4) 06/27/22 18:20 Total Bilirubin 0.6 mg/dl (0.2-1.0) 06/27/22 18:20 AST 51 U/L (13-39) H 06/27/22 18:20 ALT 69 U/L (7-52) H 06/27/22 18:20 Alkaline Phosphatase 78 U/L (34-104) 06/27/22 18:20 Troponin I High Sens 46.1 pg/ml (0-20) H 06/27/22 20:03 B-Natriuretic Peptide > 4700 pg/ml (0-100) H 06/27/22 18:20 Total Protein 6.7 gm/dl (6.0-8.3) 06/27/22 18:20 Albumin 3.8 gm/dl (3.4-5.0) 06/27/22 18:20 Globulin 2.9 gm/dl (2.5-4.0) 06/27/22 18:20 Albumin/Globulin Ratio 1.3 (0.9-2) 06/27/22 18:20 Procalcitonin < 0.05 ng/ml (0-0.5) 06/27/22 20:03 Urine Color Yellow 06/27/22 20:41 Urine Appearance Clear (Clear) 06/27/22 20:41 Urine pH 5.0 (4.5-7.5) 06/27/22 20:41 Ur Specific [place] 1.014 (1.000-1.030) 06/27/22 20:41 Urine Protein Trace (Negative) H 06/27/22 20:41 Urine Glucose (UA) Negative (Negative) 06/27/22 20:41 Urine Ketones Negative (Negative) 06/27/22 20:41 Urine Blood Negative (Negative) 06/27/22 20:41 Urine Nitrite Negative (Negative) 06/27/22 20:41 Urine Bilirubin Negative (Negative) 06/27/22 20:41 Urine Urobilinogen Negative (Negative) 06/27/22 20:41 Ur Leukocyte Esterase 2+ (Negative) H 06/27/22 20:41 Urine WBC (Auto) 10-30 /hpf (0-5) H 06/27/22 20:41 Urine RBC (Auto) 0-4 /hpf (0-4) 06/27/22 20:41 U Hyaline Cast (Auto) >30 /lpf (0-5) H 06/27/22 20:41 U Epithel Cells (Auto) >30 /lpf (0-5) H 06/27/22 20:41 Urine Bacteria (Auto) Negative (Negative) 06/27/22 20:41 Ur Renal Epithelial Cell Not Reportable 06/27/22 20:41 WBC Casts 20-30 /lpf (0) H 06/27/22 20:41 Urine Mucus Present (None Prsent) A 06/27/22 20:41 SARS-CoV-2, RNA, NAAT NEGATIVE (NEGATIVE) 06/27/22 19:34 Impressions Chest X-Ray 06/27/22 17:41 XR chest 1V portable HISTORY: 81 years-old Male Dyspnea acute shortness of breath COMPARISON: Chest radiograph 04/29/2021 TECHNIQUE: Portable AP view of the chest FINDINGS: Cardiac silhouette is enlarged. Pulmonary vascular congestion with interstitial coarsening. Layering pleural effusions with right greater left bibasilar and right midlung consolidation. Degenerative changes of the shoulders and spine. IMPRESSION: 1. Cardiomegaly with pulmonary edema. 2. Bilateral pleural effusions with right greater than left bibasilar and right midlung consolidation. ACT 112: Negative or not required by law. The above report was generated using voice recognition software. It may contain grammatical, syntax or spelling errors. Electronically signed by: Pramod Browning M.D. 06/27/2022 6:12 PM Diagnostic Findings EKG as per my interpretation : Rate 120, sinus tachycardia, normal axis, T wave flattening lateral leads Code Status & VTE Plan VTE Prophylaxis Plan VTE Prophylaxis will be ordered: Yes
[2022-06-28] MEDS ORDERED: traMADol HCL 50 MG TABLET PO PRN (00:16)
[2022-06-28] MEDS ORDERED: ACETAMINOPHEN 325 MG TAB PO PRN (00:16)
[2022-06-28] MEDS ORDERED: NITROGLYCERIN SL 0.4 MG/TAB TAB SL PRN (00:16)
[2022-06-28] MEDS ORDERED: PROMETHAZINE HCL 6.25 MG in SODIUM CHLORIDE 0.9% 50 ML IV PRN (00:16)
[2022-06-28 06:19] LABS: Hematocrit (blood only) 40.3 % (40.1-51.0); Hemoglobin 13.6 g/dl (14.0-18.0); Mean Corpuscular Hemoglobin 29.4 pg (25.0-34.0); Mean Corpuscular Hgb Conc 33.7 g/dL (32.0-36.0); Mean Platelet Volume 11.4 fL (9.4-12.4); Platelet Count 197 K/uL (130-400); RDW Coefficient of Variation 15.3 % (11.5-14.5); RDW Standard Deviation 48.3 fL (36.4-46.3); Red Blood Count 4.63 M/uL (4.63-6.08); White Blood Count 7.36 K/ul (4.8-10.8)
[2022-06-28] MEDS ORDERED: IPRATROPIUM BROMIDE NEB SOLN 0.02% 2.5 ML VIAL INH STA (06:25)
[2022-06-28] MEDS ORDERED: METOPROLOL TARTRATE 25 MG TAB PO SCH (06:25)
[2022-06-28] MEDS ORDERED: LEVALBUTEROL 1.25MG/0.5ML NEB INH STA (06:25)
[2022-06-28] MEDS ORDERED: XOPENEX/ATROVENT 1.25mg/0.5MG NEB COMBO NEB STA (06:25)
[2022-06-28] MEDS ORDERED: FUROSEMIDE 40 MG/4 ML VIAL IV ONE ×3 (06:30→16:17)
[2022-06-28 06:51] LABS: Calcium 8.7 mg/dl (8.5-10.1); Est GFR (African American) 84.5 ml/min; Est GFR (Non-African American) 72.9 ml/min; Potassium 3.6 mmol/L (3.5-5.1)
[2022-06-28 06:53] LABS: Basophils # (auto) 0.01 K/uL (0-0.2); Basophils % (auto) 0.1 %; Immature Granulocytes # (auto) 0.02 K/uL (0.00-0.02); Immature Granulocytes % (auto) 0.3 %; Lymphocytes # (auto) 0.36 K/uL (1.2-3.4); Lymphocytes % (auto) 4.9 %; Monocytes # (auto) 0.27 K/uL (0.24-0.82); Monocytes % (auto) 3.7 %
--- NOTE | 2022-06-28 07:16 | CT Scan Report ---
HEAD CT NONCONTRAST CT DOSE: 614.27 mGy.cm HISTORY: Headache. TECHNIQUE: Multiaxial CT images of the head were performed without the use of intravenous contrast. A utomated exposure control was utilized for this study. A dose lowering technique was utilized adheri ng to the principles of ALARA. Comparison: Head CT 05/25/2011. Findings: The paranasal sinuses and mastoid air cells are clear. The calvarium and skull base are int act. There is no mass, hematoma, midline shift, acute infarct. White matter hypodensity is nonspecifi c but suggestive of microvascular ischemic change. The ventricles and sulci demonstrate mild age-rela osman involutional changes. Impression: No acute intracranial abnormality. ACT 112: Negative or not required by law. Electronically signed by: Cole Quintana M.D. 06/28/2022 7:14 AM
[2022-06-28] MEDS ORDERED: POTASSIUM CHLORIDE CRTAB 20 MEQ TABCR PO STA (07:47)
[2022-06-28] MEDS: ATORVASTATIN 10 MG TAB PO SCH (08:08)
[2022-06-28] MEDS: ASPIRIN 81 MG ECTAB PO SCH (08:09)
[2022-06-28] MEDS: ENOXAPARIN INJ 40 MG/0.4 ML SYR SQ SCH (08:10)
[2022-06-28] MEDS: SERTRALINE HCL 50 MG TABLET PO SCH (08:10)
[2022-06-28] MEDS ORDERED: lisinopril 20 MG TAB PO SCH (09:00)
--- NOTE | 2022-06-28 09:07 | Cardiology Consultation ---
Date of Consultation June 28, 2022 Supervising Physician Attestation: I have personally performed a history and physical examination on the patient. I agree with the physician accounting assistant's findings and plan as documented with the following additions. Subjective: At the time of my assessment, patient with perhaps a subtle degree of worsening respiratory distress than that which was noted earlier this morning. Audible expiratory wheezing noted, conversational dyspnea, tachypnea. Oxygen saturation low 90s on room air. Systolic blood pressure in the upper 90s. Exam: Pulmonary: Coarse expiratory wheezing Cardiovascular: Regular rhythm, 1/6 systolic murmur, no edema Data: Echocardiogram performed today with moderate left ventricular chamber enlarg ement, diffuse hypokinesis to akinesis, LVEF 20 to 25%, moderate bilateral pleural effusions, moderate mitral regurgitation EKG performed 06/28/2022, 12:25 AM, interpreted independently: Sinus tachycardia 102 bpm age-indeterminate inferior infarct pattern. Nonspecific diffuse repolarization changes. Assessment and Plan: Likely multifactorial respiratory insufficiency. Acute heart failure with preserved ejection fraction, exam also suggestive of underlying pulmonary process. Has a reported history of heavy tobacco use. -Patient received IV Solu-Medrol on presentation yesterday, and is on inhaled bronchodilators, oral prednisone. Doxycycline. Received a dose of oral furosemide overnight last night, and again with dose of 40 mg earlier this morning. Peña catheter placed at the time of my assessment, and in follow-up, about 200 mL of urine output noted over the last 2 hours. Although creatinine has trended up slightly from admission, 1.1, to 1.3, will proceed with another dose of furosemide 40 mg x 1 now, 1600. -Presentation is not suggestive of an acute coronary syndrome. Uncertain how long his LV systolic dysfunction has been present, but appears to be an acute recognition of a chronic indolent problem. DVT prophylaxis: Agree with subcutaneous Lovenox for DVT prophylaxis. Dwight Fitzpatrick, DO Assessment & Plan (1) Acute hypoxemic respiratory failure: (2) COPD (chronic obstructive pulmonary disease): (3) Acute on chronic systolic HF (heart failure): (4) Atrial tachycardia, paroxysmal: (5) Paroxysmal VT: Plan Patient admitted for SOB/hypoxia, acute respiratory failure, likely multifactorial with acute on chronic HFrEF (new diagnosis, but duration unknown), COPD exacerbation with possible underlying pneumonia. Patient's respiratory status improving this morning after therapies including Antibiotics, steroids, nebs and IV furosemide. Prelim Echo report reveals severely reduced LVEF at 20%. Last echo per review of inpatient/outpatient records was in 2002 with normal LVEF and old inferior wall TN. He was tachycardic on admission, now improving but having frequent atr ial/ventricular ectopy and non sustained runs of atrial tach and VT. Supplement potassium and magnesium. Recheck levels at noon. He was started on low dose metoprolol tartrate by hospitalist. Given reduced LVEF, transition to metoprolol succinate 12.5 mg BID and titrate as tolerated. He has a chart history of bradycardia, so will only initiate low dose and monitor HR's. Continue lisinopril. Repeat chest xray ordered. Likely will need additional IV furosemide this afternoon. Received most recent dose at 7:00 AM this morning. Monitor I+O's. 1500 ml fluid restriction. Daily weight with standing scale. Consider initiation of spironolactone as well Continue ASA, statin, lisinopril (home meds) for underlying ischemic heart disease. HS troponin minimally elevated, not indicated of acute ACS, but consistent with respiratory failure, hypoxia and CHF exacerbation. Case to be discussed with Dr. Fitzpatrick. History of Present Illness Reason for Consultation: SOB Requesting Physician: Dr. Leo Attending Physician: Dr. Fitzpatrick History of Present Illness Patient is an 81 year old male who was previously followed 20 years ago by [facility], Dr. Mckinney. Since that time, he was evaluated on one occasion in [address] Pugh. History includes: 1. remote history of CAD s/p inferior wall TN 20 + years ago. No coronary intervention at that time or medical management. Stress echo in 2002 with basal inferior wall hypokinesis, preserved LVEF and without valvular disease. 2. Dyslipidemia with statin intolerance. Tolerating low dose atorvastatin 3. Hypertension 4. Tobacco abuse Patient is a poor historian. Admission notes reviewed. Came to ER for worsening SOB/dyspnea/cough/wheeze. Chest xray consistent with possible consolidation and b/l pleural effusions. Started on antibiotics, nebs, steroids, and several doses of furosemide. EKG demonstrating sinus tach with frequent atrial ectopy. HS troponin minimally elevated, consistent with acute respiratory distress/hypoxia. Patient denied chest pain on arrival. At time of consult, patient resting in bed. He feels "good". Wants to get out of bed and "do something". Expiratory wheeze audible. Patient reports ongoing cough, but at baseline. He denies SOB or CP. No orthopnea, PND or edema. No fever or chills. No palpitations. No dizziness. This morning he had 1 non sustained run of possible atrial tach lasting approx 10-15 seconds. He also had 1 non sustained run of VT, about 6 beats. Given additional potassium supplement. Started on low dose metoprolol tartrate 12.5 mg BID. Given additional dose of IV furosemide this morning as well. He currently denies acute complaints. Allergies Allergy/AdvReac Type Severity Reaction Status Date / Time No Known Allergies Allergy Verified 06/27/22 19:54 Home Medications Medication Instructions Recorded Confirmed Type aspirin 81 mg tablet,delayed 81 mg PO DAILY 06/27/22 06/27/22 History release atorvastatin 10 mg tablet 10 mg PO DAILY 06/27/22 06/27/22 History lisinopril 20 mg tablet 20 mg PO DAILY 06/27/22 06/27/22 History meclizine 25 mg tablet 25 mg PO TID PRN Dizziness 06/27/22 06/27/22 History sertraline 50 mg tablet 50 mg PO DAILY 06/27/22 06/27/22 History Patient History Medical History Coronary artery disease Surgical History No pertinent past surgical history Social History Smoking Status: Heavy tobacco smoker Tobacco Type: Pipe Second Hand Exposure: No; Do You Dip or Chew Tobacco: No; Tobacco Cessation Education Requested by Patient: Yes Hx Alcohol Use: No Hx Substance Use: No Preferred Language: Ukrainian Communication Ability: Effective 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 Beliefs That Will Affect Care: None Current Living Situation: Alone Other Information That Helps Us Care for You: No Feels Safe at Home: Yes Safety Concerns: Feels Safe At This Time Assistive Devices: None Review of Systems Review of Systems: All systems reviewed & are unremarkable except as noted in HPI & below Physical Exam Physical Exam: Temp Pulse Resp BP Pulse Ox O2 Del Method O2 Flow Rate 36.5 C 89 18 96/69 L 94 2 06/28/22 13:00 06/28/22 13:00 06/28/22 13:00 06/28/22 13:00 06/28/22 13:00 06/28/22 13:00 06/28/22 11:20 Constitutional: well developed; no acute distress Neck: trachea midline, no thyromegaly Respiratory: + audible wheezes; no respiratory distress and no labored breathing Auscultation: + diminished lung sounds (bases b/l) and + wheezes (expiratory b/l) Cardiovascular: Rate/Rhythm: regular rate and regular rhythm (with ectopy) Heart Sounds: normal S1 and normal S2; no murmur Vessels: no JVD Extremities: no edema Gastrointestinal (Abdomen): normal bowel sounds, soft, nontender, no hepatosplenomegaly Skin: no rashes, warm and dry Neurologic: PERRL, EOMI, accommodation nl, no face palsy, no dysarthria Psychiatric: A+Ox3, euthymic affect Results & Data ([facility]) Vital Signs (Past 12 Hours) V Laboratory Results Cardiac Enzymes 06/27/22 06/27/22 06/27/22 Range/Units 18:20 18:20 20:03 AST 51 H (13-39) U/L Troponin I High Sens 53.7 H* 46.1 H (0-20) pg/ml B-Natriuretic Peptide > 4700 H (0-100) pg/ml Coagulation 06/27/22 06/27/22 Range/Units 18:20 18:20 PT 12.9 H (9.0-12.0) Seconds APTT 29.9 (21.0-31.0) Seconds B-Natriuretic Peptide > 4700 H (0-100) pg/ml CBC 06/27/22 06/28/22 Range/Units 18:20 05:41 WBC 12.55 H 7.36 (4.8-10.8) K/ul RBC 4.98 4.63 (4.63-6.08) M/uL Hgb 14.6 13.6 L (14.0-18.0) g/dl Hct 44.2 40.3 (40.1-51.0) % Plt Count 208 197 (130-400) K/uL Neut # (Auto) 10.32 H 6.70 H (1.4-6.5) K/uL Lymph # (Auto) 0.93 L 0.36 L (1.2-3.4) K/uL Garza # (Auto) 1.13 H 0.27 (0.24-0.82) K/uL Eos # (Auto) 0.05 0.00 (0-0.50) K/uL Baso # (Auto) 0.08 0.01 (0-0.2) K/uL Comprehensive Metabolic Panel 06/27/22 06/28/22 Range/Units 18:20 05:41 Sodium 144 144 (136-145) mmol/L Potassium 3.9 3.6 (3.5-5.1) mmol/L Chloride 114 H 110 H (98-107) mmol/L Carbon Dioxide 22 26 (21-32) mmol/L BUN 38 H 33 H (6-23) mg/dl Creatinine 1.11 0.97 (0.6-1.4) mg/dl Glucose 122 H 117 H (70-99(Fasting)) mg/dl Calcium 9.2 8.7 (8.5-10.1) mg/dl AST 51 H (13-39) U/L ALT 69 H (7-52) U/L Alkaline Phosphatase 78 (34-104) U/L Total Protein 6.7 (6.0-8.3) gm/dl Albumin 3.8 (3.4-5.0) gm/dl Diagnostic Findings Prelim echo - final report pending at time of consult -severely reduced LVEF 20%. reviewed: NSR, Sinus tach with HR"s ranging 90-120, frequent atrial and ventricular ectopy. Around 8:30 AM he had about 15 second run of atrial tach Around 8:37 AM he had 6 beat run of wide complex tachycardia suggestive of VT EKG on admission, 06/27: Sinus tach with frequent atrial ectopy No acute ST/T wave abnormality Repeat EKG on 06/28: sinus tach with frequent atrial and ventricular ectopy Chest xray on admission 06/27/22: IMPRESSION: 1. Cardiomegaly with pulmonary edema. 2. Bilateral pleural effusions with right greater than left bibasilar and right midlung consolidation. Head CT on admission 06/27/22: Impression: No acute intracranial abnormality. Medications Administered Current Inpatient Medications Acetaminophen (Acetaminophen 325 Mg Tab) 650 mg PO Q4H PRN PRN Reason: Pain or Fever Stop: 07/28/22 00:15 Aspirin (Aspirin 81 Mg Ectab) 81 mg PO DAILY [facility] Stop: 07/28/22 08:59 Last Admin: 06/28/22 08:09 Dose: 81 mg Atorvastatin Calcium (Atorvastatin 10 Mg Tab) 10 mg PO DAILY [facility] Stop: 07/28/22 08:59 Last Admin: 06/28/22 08:08 Dose: 10 mg Enoxaparin Sodium (Enoxaparin Inj 40 Mg/0.4 Ml Syr) 40 mg SQ QAM [facility] Stop: 07/28/22 08:59 Last Admin: 06/28/22 08:10 Dose: 40 mg Promethazine HCl 6.25 mg/ (Sodium Chloride) 50.25 mls @ 201 mls/hr IV Q6H PRN PRN Reason: Nausea And Vomiting Stop: 07/28/22 00:15 Lisinopril (Lisinopril 20 Mg Tab) 20 mg PO DAILY [facility] Stop: 07/28/22 08:59 Last Admin: 06/28/22 08:08 Dose: 20 mg Metoprolol Tartrate (Metoprolol Tartrate 25 Mg Tab) 12.5 mg PO BID [facility] Stop: 07/28/22 06:24 Last Admin: 06/28/22 07:42 Dose: 12.5 mg Nitroglycerin (Nitroglycerin Sl 0.4 Mg/Tab Tab) 0.4 mg SL Q5M PRN PRN Reason: Chest Pain Stop: 07/28/22 00:15 Sertraline HCl (Sertraline Hcl 50 Mg Tablet) 50 mg PO DAILY [facility] Stop: 07/28/22 08:59 Last Admin: 06/28/22 08:10 Dose: 50 mg Tramadol HCl (Tramadol Hcl 50 Mg Tablet) 25 mg PO Q4H PRN PRN Reason: Pain Stop: 07/28/22 00:15 (1) COPD (chronic obstructive pulmonary disease) COPD type: COPD with acute exacerbation Qualified Code(s): J44.1 - Chronic obstructive pulmonary disease with (acute) exacerbation
[2022-06-28 10:08] LABS: Estimated Average Glucose 120 mg/dl; Hemoglobin A1C 5.8 % (4.5-5.6)
--- NOTE | 2022-06-28 10:25 | Electrocardiogram Report ---
Test Reason : Blood Pressure : / mmHG Vent. Rate : 120 BPM Atrial Rate : 120 BPM P-R Int : 126 ms QRS Dur : 098 ms QT Int : 346 ms P-R-T Axes : 065 012 120 degrees QTc Int : 489 ms Sinus tachycardia Premature atrial complexes Poor R wave progression, consider anterior HI vs. lead placement vs. LVH Abnormal ECG When compared with ECG of 29-APR-2021 09:29, Premature ventricular complexes are no longer Present Vent. rate has increased BY 47 BPM Criteria for Inferior infarct are no longer Present Nonspecific T wave abnormality no longer evident in Inferior leads Confirmed by Williams Rosales ([id number]) on 06/28/2022 10:25:07 AM Referred By: REFERRED SELF Confirmed By:Williams Rosales
[2022-06-28] MEDS ORDERED: ALBUT/IPRATROP 3MG/0.5MG NEB 3 ML VIAL NEB SCH (11:15)
[2022-06-28] MEDS ORDERED: ALBUT/IPRATROP 3MG/0.5MG NEB 3 ML VIAL ONE (11:18)
[2022-06-28] MEDS: NICOTINE 21 MG/24 HR TDSY TD SCH (12:01)
[2022-06-28] MEDS: DOXYCYCLINE HYCLATE 100 MG CAP PO SCH ×2 (12:02→20:04)
[2022-06-28] MEDS: predniSONE 20 MG TAB PO SCH (12:02)
[2022-06-28 12:42] LABS: BUN Creatinine Ratio 29.2 (10-20); Calcium 8.9 mg/dl (8.5-10.1); Creatinine Clr Calc Pharmacy 37.3 ml/min; Est GFR (African American) 59.3 ml/min; Est GFR (Non-African American) 51.2 ml/min; Magnesium 2.2 mg/dl (1.7-2.4); Potassium 4.4 mmol/L (3.5-5.1)
[2022-06-28] MEDS: ALBUT/IPRATROP 3MG/0.5MG NEB 3 ML VIAL NEB SCH ×2 (12:57→19:49)
--- NOTE | 2022-06-28 15:41 | XRay Report ---
XR chest 1V portable HISTORY: 81 years-old Male re evaluate pleural effusions; pulm edema acute shortness of breath in a patient with pleural effusions COMPARISON: Chest radiograph 06/27/2022 TECHNIQUE: Portable AP view of the chest FINDINGS: Cardiac silhouette is enlarged. Pulmonary vascular congestion with interstitial coarsening.] Left lay ering pleural effusions with bibasilar predominant consolidation. Generally stable. No pneumothorax. Healed chronic left-sided rib fractures. Degenerative changes of the shoulders and spine. IMPRESSION: 1. Cardiomegaly with unchanged pulmonary edema. 2. Stable right greater than left layering pleural effusions with bibasilar consolidation. ACT 112: Negative or not required by law. The above report was generated using voice recognition software. It may contain grammatical, syntax o r spelling errors. Electronically signed by: Pramod Browning M.D. 06/28/2022 3:39 PM
--- NOTE | 2022-06-28 16:11 | Electrocardiogram Report ---
Test Reason : Blood Pressure : / mmHG Vent. Rate : 102 BPM Atrial Rate : 102 BPM P-R Int : 130 ms QRS Dur : 106 ms QT Int : 396 ms P-R-T Axes : 029 005 137 degrees QTc Int : 516 ms Sinus tachycardia with Premature atrial complexes Minimal voltage criteria for LVH, may be normal variant Poor R wave progression, consider anterior VA vs. lead placement vs. LVH Abnormal ECG When compared with ECG of 27-JUN-2022 17:42, (unconfirmed) Premature atrial complexes are now Present Confirmed by Williams Rosales ([id number]) on 06/28/2022 4:11:30 PM Referred By: REFERRED SELF Confirmed By:Williams Rosales
--- NOTE | 2022-06-28 17:20 | Hospitalist Progress Note ---
Date of Service June 28, 2022 Assessment & Plan (1) Acute hypoxemic respiratory failure: Plan: Acute hypoxemic respiratory failure Likely secondary to COPD, CHF exacerbation Supplemental oxygen as needed Monitor Acute on chronic systolic heart failure B/L Pleural effusion --CXR:Cardiomegaly with unchanged pulmonary edema. Stable right greater than left layering pleural effusions with bibasilar consolidation. --ECHO: Left ventricle is moderately dilated. EF 20 to 25%. Diffuse hypokinesis to akinesis. Aortic valve sclerosis moderate, without significant aortic valvular stenosis. Mild aortic regurgitation. Moderate mitral regurgitation. Moderate sized left pleural effusion. Moderate size right pleural effusion --Received IV lasix Monitor I/Os, daily weight Monitor Volume status Appreciate Cardiology Input Continue IV diuresis Acute Bronchitis Suspected COPD Exacerbation Ongoing tobacco abuse Started on doxycycline Continue prednisone, and fabiola vasquezs Counseled to quit smoking Needs outpatient PFTs Supplemental oxygen as needed CAD S/P Stent Continue aspirin, Lipitor, metoprolol Hypertension Continue metoprolol, lisinopril Monitor Hyperlipidemia on statin Prediabetes HbA1c 5.8 DVT Px: Lovenox SQ Code Status Full code Admission and Anticipated Discharge Date Admission Date: June 27, 2022 Subjective Patient is seen and examined at bedside Anxious during my encounter Reports having cough, mild dyspnea, dizziness Denies any chest pain, nausea, abdominal pain Offers no other complaints Review of Systems Review of Systems: All systems reviewed & are unremarkable except as noted in Subjective Physical Exam Physical Exam: Physical Exam: Vitals signs as noted above General Appearance:Moderately built and nourished, no apparent distress Head: normocephalic, Atraumatic Eyes: normal inspection, EOMI Neck: supple, Trachea midline Respiratory/Chest: Decreased breath sounds, B/L expiratory wheezes, rhonchi, No accessory muscle use Cardiovascular: S1, S2, + murmur Abdomen/GI:Soft, Non tender, Bowel sounds present Extremities/Musculoskeletal:normal inspection, 1+ B/L LE edema Neurologic/Psych:AAOX3, grossly no focal neurological deficits Skin: normal color, warm Results & Data Results & Data ([facility]) Vital Signs (Past 12 Hours) Vital Signs Temp Pulse Pulse Resp BP BP Pulse Ox 06/28/22 16:57 87 18 107/70 97 06/28/22 16:57 96 H 115/80 06/28/22 13:00 36.5 C 89 18 96/69 L 94 06/28/22 11:20 89 19 97 06/28/22 07:00 93 H 06/28/22 10:38 06/28/22 07:11 95 H 20 96 06/28/22 06:44 98 H 148/82 H 06/28/22 05:23 108 H 20 136/79 97 O2 Del Method O2 Flow Rate 06/28/22 16:57 Nasal Cannula 2 06/28/22 16:57 06/28/22 13:00 Room Air 06/28/22 11:20 Nasal Cannula 2 06/28/22 07:00 06/28/22 10:38 Nasal Cannula 2 06/28/22 07:11 Nasal Cannula 1 06/28/22 06:44 06/28/22 05:23 Nasal Cannula 2 Laboratory Results Short CBC 06/27/22 06/28/22 Range/Units 18:20 05:41 WBC 12.55 H 7.36 (4.8-10.8) K/ul Hgb 14.6 13.6 L (14.0-18.0) g/dl Hct 44.2 40.3 (40.1-51.0) % Plt Count 208 197 (130-400) K/uL BMP 06/27/22 06/28/22 06/28/22 18:20 05:41 11:49 Sodium 144 144 142 Potassium 3.9 3.6 4.4 D Chloride 114 H 110 H 109 H Carbon Dioxide 22 26 24 BUN 38 H 33 H 38 H Creatinine 1.11 0.97 1.30 D Glucose 122 H 117 H 109 H Calcium 9.2 8.7 8.9 Liver Function 06/27/22 Range/Units 18:20 Total Bilirubin 0.6 (0.2-1.0) mg/dl AST 51 H (13-39) U/L ALT 69 H (7-52) U/L Alkaline Phosphatase 78 (34-104) U/L Albumin 3.8 (3.4-5.0) gm/dl Urine 06/27/22 Range/Units 20:41 Urine Color Yellow Urine Appearance Clear (Clear) Urine pH 5.0 (4.5-7.5) Ur Specific [place] 1.014 (1.000-1.030) Urine Protein Trace H (Negative) Urine Glucose (UA) Negative (Negative)
[2022-06-28] MEDS ORDERED: METOPROLOL SUCC 25MG EXT REL TAB PO SCH (21:00)
[2022-06-28] MEDS: MELATONIN 3 MG TAB PO PRN (21:51)
[2022-06-29] MEDS: ALBUT/IPRATROP 3MG/0.5MG NEB 3 ML VIAL NEB SCH ×4 (00:10→19:08)
[2022-06-29] MEDS: METOPROLOL SUCC 25MG EXT REL TAB PO SCH ×2 (04:15→21:19)
[2022-06-29 04:52] LABS: Basophils # (auto) 0.02 K/uL (0-0.2); Basophils % (auto) 0.1 %; Hematocrit (blood only) 39.8 % (40.1-51.0); Hemoglobin 13.3 g/dl (14.0-18.0); Immature Granulocytes # (auto) 0.05 K/uL (0.00-0.02); Immature Granulocytes % (auto) 0.3 %; Lymphocytes # (auto) 0.72 K/uL (1.2-3.4); Lymphocytes % (auto) 4.9 %; Mean Corpuscular Hemoglobin 29.6 pg (25.0-34.0); Mean Corpuscular Hgb Conc 33.4 g/dL (32.0-36.0); Mean Corpuscular Volume 88.4 fL (80.0-100.0); Mean Platelet Volume 11.4 fL (9.4-12.4); Monocytes # (auto) 1.52 K/uL (0.24-0.82); Monocytes % (auto) 10.3 %; Neutrophils # (auto) 12.43 K/uL (1.4-6.5); Neutrophils % (auto) 84.4 %; Platelet Count 183 K/uL (130-400); RDW Coefficient of Variation 15.2 % (11.5-14.5); RDW Standard Deviation 48.8 fL (36.4-46.3); White Blood Count 14.74 K/ul (4.8-10.8)
[2022-06-29 05:32] LABS: BUN Creatinine Ratio 32.6 (10-20); Calcium 8.6 mg/dl (8.5-10.1); Creatinine Clr Calc Pharmacy 26.8 ml/min; Est GFR (African American) 39.7 ml/min; Est GFR (Non-African American) 34.3 ml/min; Magnesium 2.1 mg/dl (1.7-2.4); Potassium 3.9 mmol/L (3.5-5.1)
[2022-06-29] MEDS ORDERED: POTASSIUM CHLORIDE CRTAB 20 MEQ TABCR PO STA (07:04)
--- NOTE | 2022-06-29 07:04 | Communication Note ---
Date of Service: June 29, 2022 Patient with NSVT as per RN. Asymptomatic. AP NSVT Facilitate early administration of beta-shanna Check a.m. labs ADDENDUM Serum creatinine 1.81 AP ARF Check UA Lisinopril for now
[2022-06-29] MEDS: ATORVASTATIN 10 MG TAB PO SCH (08:11)
[2022-06-29] MEDS: predniSONE 20 MG TAB PO SCH (08:11)
[2022-06-29] MEDS: ENOXAPARIN INJ 40 MG/0.4 ML SYR SQ SCH (08:11)
[2022-06-29] MEDS: NICOTINE 21 MG/24 HR TDSY TD SCH (08:11)
[2022-06-29] MEDS: DOXYCYCLINE HYCLATE 100 MG CAP PO SCH ×2 (08:11→21:19)
[2022-06-29] MEDS: SERTRALINE HCL 50 MG TABLET PO SCH (08:11)
[2022-06-29] MEDS: ASPIRIN 81 MG ECTAB PO SCH (08:12)
--- NOTE | 2022-06-29 10:21 | Cardiology Progress Note ---
Date of Service June 29, 2022 Assessment & Plan (1) Acute hypoxemic respiratory failure: (2) COPD (chronic obstructive pulmonary disease): (3) Acute on chronic systolic HF (heart failure): (4) Atrial tachycardia, paroxysmal: (5) Paroxysmal VT: (6) Ischemic cardiomyopathy: Plan Patient admitted for SOB/hypoxia, acute respiratory failure, likely multifactorial with acute on chronic HFrEF (new diagnosis, but duration unknown), COPD exacerbation and possible underlying pneumonia. Echo report reveals severely reduced LVEF at 20%, consistent with ischemic cardiomyopathy. This is likely a new finding of a chronic problem. No recent echo in medical records. He was tachycardic on admission with frequent ventricular ectopy and non sustained runs of VT, now improved on low dose metoprolol succinate. He has received multiple doses of furosemide since admission without significant diuresis. Creatinine now rising to 1.8. Hold lisinopril. Chest xray with ongoing b/l consolidation and pleural effusions. His presentation was more consistent with COPD exacerbation and pneumonia than acute CHF. Recommend pulmonary consult for further treatment. May need to consider thoracentesis. Monitor I+O's. 1500 ml fluid restriction. Daily weight with standing scale. Consider initiation of spironolactone in the future once renal function improves. Will hold additional diuretics today. Nursing staff asked to place patient back on oxygen and monitor closely. Continue ASA, statin, lisinopril (home meds) for underlying ischemic heart disease. HS troponin minimally elevated, not indicated of acute ACS, but consistent with respiratory failure, hypoxia. Pending his clinical course, once respiratory status improves, will consider ischemic work up as outpatient and possible [place] [facility] [place] Case to be discussed with Dr. Fitzpatrick. Admission and Anticipated Discharge Date Admission Date: June 27, 2022 Supervising Physician Co-Signing Physician Notes Supervising Physician Attestation: I have personally performed a history and physical examination on the patient. I agree with the physician restaurant assistant manager's findings and plan as documented with the following additions. Subjective: Patient with interval improvement in oxygenation, pulse oximetry most recent 90% on 2 L nasal cannula. Still with wheezing Exam: Lungs: Expiratory wheezing noted Cardiovascular: Regular rhythm, 1/6 systolic murmur, no edema Data: Telemetry revealing sinus rhythm in the range of 6070 bpm, a 6 beat run of nonsustained ventricular tachycardia was observed at 2:53 AM on 06/29/2022. Occasional PVCs. Assessment and Plan: Multifactorial respiratory insufficiency, with acute on chronic systolic heart failure, likely ischemic cardiomyopathy, newly diagnosed. 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 -Patient describes that he smokes a pipe at home but has been smoking less recently. -On the afternoon of 06/28/2022, the patient was observed by the undersigned to be very tachypneic, Peña catheter placed with little urine output, after the administration of furosemide 40 mg, late afternoon 06/28/2022, urine output still minimal over the next 12 hours, about a liter. Creatinine up to 1.8 today. Hold off on diuretics today. Continue supportive care including bronchodilators, prednisone. Continue aspirin, atorvastatin, lisinopril, metoprolol. DVT prophylaxis: Lovenox 40 mg subcu daily Dwight Fitzpatrick, DO Subjective Patient resting comfortably. Audible expiratory wheezing noted. Not currently on oxygen and patient reports "they said I didn't need it". He reports SOB is "about the same as yesterday". Ongoing cough and wheeze reported. No chest pain. No orthopnea, PND or edema. Review of Systems Review of Systems: All systems reviewed & are unremarkable except as noted in HPI & below Physical Exam Constitutional: well developed; no acute distress Neck: trachea midline, no thyromegaly Respiratory: + audible wheezes; no respiratory distress and no labored breathing Auscultation: + diminished lung sounds (bases b/l) and + wheezes (expiratory b/l) Cardiovascular: Rate/Rhythm: regular rate and regular rhythm (with ectopy) Heart Sounds: normal S1 and normal S2; no murmur Vessels: no JVD Extremities: no edema Gastrointestinal (Abdomen): normal bowel sounds, soft, nontender, no hepatosplenomegaly Skin: no rashes, warm and dry Neurologic: PERRL, EOMI, accommodation nl, no face palsy, no dysarthria Psychiatric: A+Ox3, euthymic affect Results & Data ([facility]) Vital Signs (Past 12 Hours) Vital Signs Temp Pulse Pulse Resp BP BP Pulse Ox 06/29/22 07:00 71 06/29/22 08:00 06/29/22 07:42 36.3 C L 75 19 96/62 L 93 06/29/22 07:01 58 L 16 92 06/29/22 03:45 36.5 C 71 20 117/88 98 06/29/22 00:19 79 06/29/22 00:16 06/29/22 00:10 18 95 06/28/22 23:17 06/28/22 23:12 36.5 C 79 18 94/59 L 96 Pulse Ox O2 Del Method O2 Del Method O2 Flow Rate O2 Flow Rate 06/29/22 07:00 06/29/22 08:00 Nasal Cannula 3 06/29/22 07:42 Room Air 06/29/22 07:01 Room Air 06/29/22 03:45 Nasal Cannula 4 06/29/22 00:19 06/29/22 00:16 95 Nasal Cannula 3 06/29/22 00:10 Nasal Cannula 3 06/28/22 23:17 Nasal Cannula 4 06/28/22 23:12 Nasal Cannula 2 Laboratory Results CBC 06/29/22 Range/Units 04:41 WBC 14.74 H (4.8-10.8) K/ul RBC 4.50 L (4.63-6.08) M/uL Hgb 13.3 L (14.0-18.0) g/dl Hct 39.8 L (40.1-51.0) % Plt Count 183 (130-400) K/uL Neut # (Auto) 12.43 H (1.4-6.5) K/uL Lymph # (Auto) 0.72 L (1.2-3.4) K/uL [place] # (Auto) 1.52 H (0.24-0.82) K/uL Eos # (Auto) 0.00 (0-0.50) K/uL Baso # (Auto) 0.02 (0-0.2) K/uL Comprehensive Metabolic Panel 06/28/22 06/29/22 Range/Units 11:49 04:41 Sodium 142 141 (136-145) mmol/L Potassium 4.4 D 3.9 (3.5-5.1) mmol/L Chloride 109 H 107 (98-107) mmol/L Carbon Dioxide 24 26 (21-32) mmol/L BUN 38 H 59 H D (6-23) mg/dl Creatinine 1.30 D 1.81 H D (0.6-1.4) mg/dl Glucose 109 H 152 H (70-99(Fasting)) mg/dl Calcium 8.9 8.6 (8.5-10.1) mg/dl Intake and Output 06/28/22 06/29/22 06/29/22 22:59 06:59 14:59 Intake Total 360 / 460 100 / 460 Output Total 413 / 1063 650 / 1063 Balance -53 / -603 -550 / -603 Intake: Oral 360 / 460 100 / 460 Output: Urine 212 / 212 Urine Amount (Catheter) 200 / 850 650 / 850 Peña/Indwelling 200 / 850 650 / 850 # Bowel Movements Other: # Unmeasured Voids 3 Weight 60.9 kg Weight Measurement Method Built in [facility] Diagnostic Findings Telemetry reviewed: NSR with PVC's. One recurrent 6 beat run of VTach occurring around 2:53 AM (during sleep). Echo report reviewed from 06/28/22: No comparison available. LV is moderately dilated. EF 20-25% Diffuse hypokinesis to akinesis. Aortic valve scerlosis moderate without significant aortic valvular stenosis. Mild AI Moderate MR Moderate size left pleural effusion Moderate size right pleural effusion Medications Administered Current Inpatient Medications Acetaminophen (Acetaminophen 325 Mg Tab) 650 mg PO Q4H PRN PRN Reason: Pain or Fever Stop: 07/28/22 00:15 Albuterol (Albut/Ipratrop 3mg/0.5mg Neb 3 Ml Vial) 3 ml NEB Q6R [facility]; Protocol Stop: 07/28/22 12:59 Last Admin: 06/29/22 07:01 Dose: 3 ml Aspirin (Aspirin 81 Mg Ectab) 81 mg PO DAILY [facility] Stop: 07/28/22 08:59 Last Admin: 06/29/22 08:12 Dose: 81 mg Atorvastatin Calcium (Atorvastatin 10 Mg Tab) 10 mg PO DAILY [facility] Stop: 07/28/22 08:59 Last Admin: 06/29/22 08:11 Dose: 10 mg Doxycycline Hyclate (Doxycycline Hyclate 100 Mg Cap) 100 mg PO BID [facility] Stop: 07/05/22 10:14 Last Admin: 06/29/22 08:11 Dose: 100 mg Enoxaparin Sodium (Enoxaparin Inj 40 Mg/0.4 Ml Syr) 40 mg SQ QAM [facility] Stop: 07/28/22 08:59 Last Admin: 06/29/22 08:11 Dose: 40 mg Promethazine HCl 6.25 mg/ (Sodium Chloride) 50.25 mls @ 201 mls/hr IV Q6H PRN PRN Reason: Nausea And Vomiting Stop: 07/28/22 00:15 Lisinopril (Lisinopril 20 Mg Tab) 20 mg PO DAILY [facility] Stop: 07/28/22 08:59 Last Admin: 06/28/22 08:08 Dose: 20 mg Melatonin (Melatonin 3 Mg Tab) 3 mg PO HS PRN PRN Reason: Sleep Stop: 07/28/22 21:29 Last Admin: 06/28/22 21:51 Dose: 3 mg Metoprolol Succinate (Metoprolol Succ 25mg Ext Rel Tab) 12.5 mg PO BID [facility] Stop: 07/29/22 03:39 Last Admin: 06/29/22 04:15 Dose: 12.5 mg Miscellaneous (Remove Nicoderm Patch) 1 each N/A DAILY@0859 [facility] Stop: 07/28/22 11:13 Last Admin: 06/29/22 08:12 Dose: 1 each Nicotine (Nicotine 21 Mg/24 Hr Tdsy) 21 mg TD QAM [place] Stop: 07/28/22 11:14 Last Admin: 06/29/22 08:11 Dose: 21 mg Nitroglycerin (Nitroglycerin Sl 0.4 Mg/Tab Tab) 0.4 mg SL Q5M PRN PRN Reason: Chest Pain Stop: 07/28/22 00:15 Prednisone (Prednisone 20 Mg Tab) 40 mg PO DAILY [facility] Stop: 07/28/22 11:14 Last Admin: 06/29/22 08:11 Dose: 40 mg Sertraline HCl (Sertraline Hcl 50 Mg Tablet) 50 mg PO DAILY [facility] Stop: 07/28/22 08:59 Last Admin: 06/29/22 08:11 Dose: 50 mg Tramadol HCl (Tramadol Hcl 50 Mg Tablet) 25 mg PO Q4H PRN PRN Reason: Pain Stop: 07/28/22 00:15 (1) COPD (chronic obstructive pulmonary disease) COPD type: COPD with acute exacerbation Qualified Code(s): J44.1 - Chronic obstructive pulmonary disease with (acute) exacerbation
--- NOTE | 2022-06-29 15:09 | Hospitalist Progress Note ---
Date of Service June 29, 2022 Assessment & Plan (1) Acute hypoxemic respiratory failure: Plan: Acute hypoxemic respiratory failure Likely secondary to COPD, CHF exacerbation Supplemental oxygen as needed Monitor Acute on chronic systolic heart failure B/L Pleural effusion --CXR:Cardiomegaly with unchanged pulmonary edema. Stable right greater than left layering pleural effusions with bibasilar consolidation. --ECHO: Left ventricle is moderately dilated. EF 20 to 25%. Diffuse hypokinesis to akinesis. Aortic valve sclerosis moderate, without significant aortic valvular stenosis. Mild aortic regurgitation. Moderate mitral regurgitation. Moderate sized left pleural effusion. Moderate size right pleural effusion --Received IV lasix Monitor I/Os, daily weight Monitor Volume status Appreciate Cardiology Input Hold additional IV diuresis today May need ischemic work-up once respiratory status improved May need thoracentesis Acute Bronchitis Suspected COPD Exacerbation Ongoing tobacco abuse Started on doxycycline Continue prednisone, and duo nebs Counseled to quit smoking Needs outpatient PFTs Supplemental oxygen as needed Consulted Pulmonology Acute Kidney Injury Likely due to diuretics Hold Lasix, lisinopril today Monitor renal function Avoid nephrotoxic agents as able next Cr: 1.8 today NSVT Continue metoprolol Replace electrolytes as needed Monitor CAD S/P Stent Continue aspirin, Lipitor, metoprolol Hypertension Continue metoprolol, lisinopril Monitor Hyperlipidemia on statin Prediabetes HbA1c 5.8 DVT Px: Lovenox SQ Code Status Full code Admission and Anticipated Discharge Date Admission Date: June 27, 2022 Subjective Patient is seen and examined at bedside NSVT overnight Reports mild frontal headache Less cough, dyspnea today Denies any chest pain, nausea, abdominal pain Discussed with Cardiology today Review of Systems Review of Systems: All systems reviewed & are unremarkable except as noted in Subjective Physical Exam Physical Exam: Physical Exam: Vitals signs as noted above General Appearance:Moderately built and nourished, no apparent distress Head: normocephalic, Atraumatic Eyes: normal inspection, EOMI Neck: supple, Trachea midline Respiratory/Chest: Decreased breath sounds, B/L expiratory wheezes, rhonchi, No accessory muscle use Cardiovascular: S1, S2, + murmur Abdomen/GI:Soft, Non tender, Bowel sounds present Extremities/Musculoskeletal:normal inspection, 1+ B/L LE edema Neurologic/Psych:AAOX3, grossly no focal neurological deficits Skin: normal color, warm Results & Data Results & Data ([facility]) Vital Signs (Past 12 Hours) Vital Signs Temp Pulse Pulse Resp BP BP Pulse Ox 06/29/22 14:58 36.3 C L 73 19 99/68 L 95 06/29/22 11:25 36.9 C 65 19 107/76 98 06/29/22 07:00 71 06/29/22 08:00 06/29/22 07:42 36.3 C L 75 19 96/62 L 93 06/29/22 07:01 58 L 16 92 06/29/22 03:45 36.5 C 71 20 117/88 98 O2 Del Method O2 Flow Rate 06/29/22 14:58 Nasal Cannula 2 06/29/22 11:25 Nasal Cannula 2 06/29/22 07:00 06/29/22 08:00 Nasal Cannula 3 06/29/22 07:42 Room Air 06/29/22 07:01 Room Air 06/29/22 03:45 Nasal Cannula 4 Laboratory Results Short CBC 06/29/22 Range/Units 04:41 WBC 14.74 H (4.8-10.8) K/ul Hgb 13.3 L (14.0-18.0) g/dl Hct 39.8 L (40.1-51.0) % Plt Count 183 (130-400) K/uL BMP 06/29/22 04:41 Sodium 141 Potassium 3.9 Chloride 107 Carbon Dioxide 26 BUN 59 H D Creatinine 1.81 H D Glucose 152 H Calcium 8.6
--- NOTE | 2022-06-29 17:34 | Procedure Note ---
Procedure Note Date of Service June 29, 2022 Note Procedure: Diagnostic and/or therapeutic ultrasound-guided RIGHT catheter thoracentesis Nurse Orthopaedic: Dr. Yair Parsons Indication: Pleural effusion Consent: Signed by patient and verified with timeout prior to procedure Anesthesia: 8 mL's of 1% lidocaine without epinephrine given locally Procedure: Consent was verified and timeout performed. Appropriate imaging studies were reviewed prior to the procedure. Patient was placed in a seated position and limited thoracic ultrasound was performed of the right chest. See separate imaging. The site appropriate for thoracentesis was selected. The skin was pre pped and draped in normal sterile fashion. Lidocaine was used for local analgesia. Fluid was aspirated via the finder needle. A small skin johnny was made with the scalpel and the catheter over the needle apparatus was advanced over the rib into the pleural space. Using the syringe one-way valve system, a total of 1100 mL's of yellow straw-colored fluid was removed. Procedure was terminated due to lack of flow. The catheter was removed and observed to be intact. A sterile dressing was applied. Post procedure chest x-ray was ordered. Fluid was sent for LDH, total protein, cell count, glucose, pH, cytology, gram stain and culture and fungal cultures. The patient tolerated the procedure well without obvious complication. Coding CPT Codes Pulmonary/Thoracic - Pulmonary and Thoracic: 12543 Thoracentesis w imaging ([id number]) [facility] [place] Procedure Codes (Charges) Pulmonary/Thoracic Procedure 1: Pulmonary and Thoracic: 19446 Thoracentesis w imaging
--- NOTE | 2022-06-29 17:38 | Pulmonary Consultation ---
Date of Consultation June 29, 2022 Assessment & Plan (1) Chronic bilateral pleural effusions: Moderate size right pleural effusion on ultrasound. Small left pleural effusion. I performed a thoracentesis with the assistance of the resident and removed 1.1 L of straw-colored fluid. We will send this for cultures, cytology, cell count and lights criteria. Suspect likely a transudate, but a possible mild exudate can be seen in the context of diuresis. Thoracentesis procedure explained to the patient and son at length. They understand the risks and benefits and wished to proceed. (2) Ischemic cardiomyopathy: Currently being managed by the hospitalist service and cardiology. Diuresis on hold given MARQUIS. (3) Dyspnea on exertion: Likely secondary to severe cardiomyopathy. Consider palliative care consult. Hopefully drainage of the pleural effusion will improve symptoms. History of Present Illness Reason for Consultation: Bilateral pleural effusions Attending Physician: Billy Leo MD History of Present Illness 81-year-old male with a history of ischemic cardiomyopathy with an LVEF of 20% who presented to the hospital due to increasing shortness of breath on 06/27/2022. He has been diuresed and had worsening renal function. He continues to be short of breath with minimal exertion such as transitioning from a sitting to a standing position. He denies any chest pain. No fevers, chills or night sweats. He has had occasional beats of nonsustained ventricular tachycardia. Cardiology is following. He has a minimal smoking history. He smoked a pipe in the past. Allergies Allergy/AdvReac Type Severity Reaction Status Date / Time No Known Allergies Allergy Verified 06/27/22 19:54 Home Medications Medication Instructions Recorded Confirmed Type aspirin 81 mg tablet,delayed 81 mg PO DAILY 06/27/22 06/27/22 History release atorvastatin 10 mg tablet 10 mg PO DAILY 06/27/22 06/27/22 History lisinopril 20 mg tablet 20 mg PO DAILY 06/27/22 06/27/22 History meclizine 25 mg tablet 25 mg PO TID PRN Dizziness 06/27/22 06/27/22 History sertraline 50 mg tablet 50 mg PO DAILY 06/27/22 06/27/22 History Patient History Medical History (Updated 06/29/22 @ 17:36 by Yair Parsons MD) Chronic bilateral pleural effusions Coronary artery disease Dyspnea on exertion Surgical History No pertinent past surgical history Social History Smoking Status: Heavy tobacco smoker Tobacco Type: Pipe Second Hand Exposure: No; Do You Dip or Chew Tobacco: No; Tobacco Cessation Education Requested by Patient: Yes Hx Alcohol Use: No Hx Substance Use: No Preferred Language: Spanish Communication Ability: Effective Application Dba Required: No Beliefs That Will Affect Care: None Current Living Situation: Alone Other Information That Helps Us Care for You: No Feels Safe at Home: Yes Safety Concerns: Feels Safe At This Time Assistive Devices: None Review of Systems Review of Systems: All systems reviewed & are unremarkable except as noted in HPI & below Physical Exam Physical Exam: Constitutional: Elderly and thin appearing male no apparent distress. Eyes: Pupils are equal round and reactive to light. Conjunctivae are normal. Anicteric sclera. Ears nose, mouth and throat: Mallampati class 1. Normal posterior oropharynx. Uvula is midline. Neck: Trachea is midline. Visual inspection is normal. Respiratory: Diminished breath sounds bilaterally. No wheezes. Mild crackles. Cardiovascular: Regular rate and rhythm. No murmurs. No edema. Gastrointestinal: Normal bowel sounds, soft, nontender and nondistended. No hepatosplenomegaly noted. Musculoskeletal: No cyanosis. Patient is able to move all extremities. Strength is 5 out of 5 in the upper and lower extremities. Skin: No rashes, warm dry and intact. Neurologic: No obvious focal neurological deficits seen. Psychiatric: Alert and oriented x3 with a euthymic affect. Results & Data Results & Data ([facility]) Vital Signs (Past 12 Hours) Vital Signs Temp Pulse Pulse Resp BP BP Pulse Ox 06/29/22 17:29 36.4 C L 60 18 94/61 L 95 06/29/22 14:58 36.3 C L 73 19 99/68 L 95 06/29/22 11:25 36.9 C 65 19 107/76 98 06/29/22 07:00 71 06/29/22 08:00 06/29/22 07:42 36.3 C L 75 19 96/62 L 93 06/29/22 07:01 58 L 16 92 O2 Del Method O2 Flow Rate 06/29/22 17:29 Room Air 09/13/22 14:58 Nasal Cannula 2 06/29/22 11:25 Nasal Cannula 2 06/29/22 07:00 06/29/22 08:00 Nasal Cannula 3 06/29/22 07:42 Room Air 06/29/22 07:01 Room Air PG Care Time/CCT Total # of Minutes Spent Total Time Spent with Patient: Total time spent is greater than 50% in coordination of care (as documented) at patient's floor/unit and/or counseling patient: Coding Level of Care Code 42404 Initial Inpt Care Lvl 3 Diagnoses Chronic bilateral pleural effusions J90 Ischemic cardiomyopathy I25.5 Dyspnea on exertion R06.09
--- NOTE | 2022-06-29 18:10 | XRay Report ---
XR chest 1V portable CLINICAL HISTORY: Status post right thoracentesis. COMPARISON STUDY: Chest radiograph June 28, 2022. FINDINGS: There is no pneumothorax following right thoracentesis. Right pleural effusion has signifi cantly decreased in size. A small left pleural effusion is noted. Cardiomegaly is noted. Pulmonary ed serafin has slightly improved. Severe degenerative changes of the right glenohumeral joint are incidental ly noted. Old left-sided rib fractures present. IMPRESSION: 1. No pneumothorax following right thoracentesis. Significant decrease in size of the right pleural e ffusion. 2. Small left pleural effusion. 3. Cardiomegaly with mild pulmonary edema, improved since prior exam. ACT 112: Negative or not required by law. Electronically signed by: Memo Arnold M.D. 06/29/2022 6:09 PM
[2022-06-29 18:26] LABS: Amylase Pleural Fluid < 10 U/L; Glucose Pleural Fluid 139 mg/dl; LDH Pleural Fluid 52 U/L; Total Protein Pleural Fluid < 3.0 gm/dl
[2022-06-29 18:51] LABS: Appearance Pleural Fluid Hazy; Color Pleural Fluid Yellow; Lymphocytes, Fluid 10 %; Mono,Macrophage,Mesothelial 88 %; Neutrophils, Fluid 2 %; RBC Pleural Fluid (A) 5000 /uL; Source Pleural Fluid Right Lung; WBC Pleural Fluid (A) 491 /uL
[2022-06-30] MEDS: ALBUT/IPRATROP 3MG/0.5MG NEB 3 ML VIAL NEB SCH ×4 (00:17→19:12)
[2022-06-30] MEDS: MELATONIN 3 MG TAB PO PRN (00:19)
[2022-06-30] MEDS ORDERED: hydrOXYzine HCl 10 MG TAB PO STA (05:15)
[2022-06-30 07:44] LABS: Hematocrit (blood only) 42.7 % (40.1-51.0); Hemoglobin 14.7 g/dl (14.0-18.0); Mean Corpuscular Hemoglobin 29.7 pg (25.0-34.0); Mean Corpuscular Hgb Conc 34.4 g/dL (32.0-36.0); Mean Corpuscular Volume 86.3 fL (80.0-100.0); Mean Platelet Volume 12.1 fL (9.4-12.4); Platelet Count 203 K/uL (130-400); RDW Coefficient of Variation 15.6 % (11.5-14.5); Red Blood Count 4.95 M/uL (4.63-6.08); White Blood Count 17.02 K/ul (4.8-10.8)
[2022-06-30] MEDS: ASPIRIN 81 MG ECTAB PO SCH (08:23)
[2022-06-30] MEDS: SERTRALINE HCL 50 MG TABLET PO SCH (08:23)
[2022-06-30] MEDS: DOXYCYCLINE HYCLATE 100 MG CAP PO SCH ×2 (08:24→20:04)
[2022-06-30] MEDS: ATORVASTATIN 10 MG TAB PO SCH (08:24)
[2022-06-30] MEDS: METOPROLOL SUCC 25MG EXT REL TAB PO SCH ×2 (08:24→20:03)
[2022-06-30] MEDS: NICOTINE 21 MG/24 HR TDSY TD SCH (08:24)
[2022-06-30] MEDS: predniSONE 20 MG TAB PO SCH (08:24)
[2022-06-30 08:28] LABS: BUN Creatinine Ratio 42.6 (10-20); Calcium 8.9 mg/dl (8.5-10.1); Creatinine Clr Calc Pharmacy 25.8 ml/min; Est GFR (Non-African American) 32.8 ml/min; Magnesium 2.3 mg/dl (1.7-2.4); Potassium 4.3 mmol/L (3.5-5.1)
--- NOTE | 2022-06-30 08:34 | Hospitalist Progress Note ---
Date of Service June 30, 2022 Assessment & Plan (1) Acute hypoxemic respiratory failure: Plan: Acute hypoxemic respiratory failure Likely secondary to COPD, CHF exacerbation Supplemental oxygen as needed Monitor Acute on chronic systolic heart failure B/L Pleural effusion --CXR:Cardiomegaly with unchanged pulmonary edema. Stable right greater than left layering pleural effusions with bibasilar consolidation. --ECHO: Left ventricle is moderately dilated. EF 20 to 25%. Diffuse hypokinesis to akinesis. Aortic valve sclerosis moderate, without significant aortic valvular stenosis. Mild aortic regurgitation. Moderate mitral regurgitation. Moderate sized left pleural effusion. Moderate size right pleural effusion --Received IV lasix Monitor I/Os, daily weight Monitor Volume status Appreciate Cardiology Input Hold additional IV diuresis today May need ischemic work-up once respiratory status improved S/ p R thoracentesis (06/29), removal of 1.1L, likely transudate 2/2 CHF Acute Bronchitis Suspected COPD Exacerbation Ongoing tobacco abuse Started on doxycycline Continue prednisone, and duo nebs Counseled to quit smoking Needs outpatient PFTs Supplemental oxygen as needed Consulted Pulmonology Acute Kidney Injury Likely due to diuretics Hold Lasix, lisinopril today Monitor renal function Avoid nephrotoxic agents as able next Cr: 1.8 today NSVT Continue metoprolol Replace electrolytes as needed Monitor CAD S/P Stent Continue aspirin, Lipitor, metoprolol Hypertension Continue metoprolol, lisinopril Monitor Hyperlipidemia on statin Prediabetes HbA1c 5.8 DVT Px: Lovenox SQ Code Status Full code Admission and Anticipated Discharge Date Admission Date: June 27, 2022 Subjective Patient is seen in follow up of dyspnea, pl. effusions, CHF (EF 20%) Underwent right thoracentesis yesterday Currently laying in bed, in no acute distress, resting and feeling tired Reports breathing is better Reports not getting much sleep overnight Currently denies any fevers, chills, chest pain. No abdominal pain nausea or vomiting. Cardiology and pulmonary medicine consulted. Review of Systems Review of Systems: All systems reviewed & are unremarkable except as noted in Subjective Physical Exam Physical Exam: General Appearance:Moderately built and nourished, no apparent distress Head: normocephalic, Atraumatic Eyes: normal inspection, EOMI Neck: supple Respiratory/Chest: No accessory muscle use, decreased breath sounds at bases, minimal wheezes, mild crackles Cardiovascular: S1, S2, + murmur Abdomen/GI:Soft, Non tender, Bowel sounds present Extremities/Musculoskeletal:normal inspection, 1+ B/L LE edema Neurologic/Psych:AAOX3, grossly no focal neurological deficits Skin: normal color, warm Results & Data Results & Data ([facility]) Vital Signs (Past 12 Hours) Vital Signs Temp Pulse Pulse Resp BP BP Pulse Ox 06/30/22 07:39 71 16 93 06/30/22 07:35 36.4 C L 71 19 97/63 L 92 06/30/22 04:00 76 20 94/58 L 92 06/30/22 01:55 75 06/30/22 00:00 06/29/22 23:56 36.4 C L 86 20 97/63 L 95 Pulse Ox O2 Del Method O2 Del Method 06/30/22 07:39 Room Air 06/30/22 07:35 Room Air 06/30/22 04:00 Room Air 06/30/22 01:55 06/30/22 00:00 95 Room Air 06/29/22 23:56 Room Air Laboratory Results 06/30/22 06/30/22 06/29/22 Range/Units 07:15 07:15 17:45 WBC 17.02 H (4.8-10.8) K/ul RBC 4.95 (4.63-6.08) M/uL Hgb 14.7 (14.0-18.0) g/dl Hct 42.7 (40.1-51.0) % MCV 86.3 (80.0-100.0) fL MCH 29.7 (25.0-34.0) pg MCHC 34.4 (32.0-36.0) g/dL RDW Std Deviation 49.0 H (36.4-46.3) fL RDW Coeff of Yovana 15.6 H (11.5-14.5) % Plt Count 203 (130-400) K/uL MPV 12.1 (9.4-12.4) fL Sodium 140 (136-145) mmol/L Potassium 4.3 (3.5-5.1) mmol/L Chloride 108 H (98-107) mmol/L Carbon Dioxide 24 (21-32) mmol/L Anion Gap 8 (3-11) BUN 80 H D (6-23) mg/dl Creatinine 1.88 H (0.6-1.4) mg/dl Est Cr Clr Drug Dosing 25.8 ml/min Est GFR ( Amer) 38.0 ml/min Est GFR (Non-Af Amer) 32.8 ml/min BUN/Creatinine Ratio 42.6 H (10-20) Glucose 102 H (70-99(Fasting)) mg/dl Calcium 8.9 (8.5-10.1) mg/dl Magnesium 2.3 (1.7-2.4) mg/dl Fluid Neutrophils % % Fluid Lymphocytes % % Fluid Meso/Macro/[place] % % Fluid Comment Pleural Fluid Source Pleural Color Pleural Appearance Pleural pH (7.3-7.4) Pleural WBC /uL Pleural RBC /uL Pleural Total Protein < 3.0 gm/dl Pleural LDH 52 U/L Pleural Glucose 139 mg/dl Pleural Amylase < 10 U/L 06/29/22 06/29/22 Range/Units 17:45 17:45 WBC (4.8-10.8) K/ul RBC (4.63-6.08) M/uL Hgb (14.0-18.0) g/dl Hct (40.1-51.0) % MCV (80.0-100.0) fL MCH (25.0-34.0) pg MCHC (32.0-36.0) g/dL RDW Std Deviation (36.4-46.3) fL RDW Coeff of Yovana (11.5-14.5) % Plt Count (130-400) K/uL MPV (9.4-12.4) fL Sodium (136-145) mmol/L Potassium (3.5-5.1) mmol/L Chloride (98-107) mmol/L Carbon Dioxide (21-32) mmol/L Anion Gap (3-11) BUN (6-23) mg/dl Creatinine (0.6-1.4) mg/dl Est Cr Clr Drug Dosing ml/min Est GFR ( Amer) ml/min Est GFR (Non-Af Amer) ml/min BUN/Creatinine Ratio (10-20) Glucose (70-99(Fasting)) mg/dl Calcium (8.5-10.1) mg/dl Magnesium (1.7-2.4) mg/dl Fluid Neutrophils % 2 % Fluid Lymphocytes % 10 % Fluid Meso/Macro/[place] % 88 % Fluid Comment Pleural Fluid Source Right Lung Pleural Color Yellow Pleural Appearance Hazy Pleural pH 7.54 H (7.3-7.4) Pleural WBC 491 /uL Pleural RBC 5000 /uL Pleural Total Protein gm/dl Pleural LDH U/L Pleural Glucose mg/dl Pleural Amylase U/L Medications Administered Current Inpatient Medications Acetaminophen (Acetaminophen 325 Mg Tab) 650 mg PO Q4H PRN PRN Reason: Pain or Fever Stop: 07/28/22 00:15 Albuterol (Albut/Ipratrop 3mg/0.5mg Neb 3 Ml Vial) 3 ml NEB Q6R [facility]; Protocol Stop: 07/28/22 12:59 Last Admin: 06/30/22 07:38 Dose: 3 ml Aspirin (Aspirin 81 Mg Ectab) 81 mg PO DAILY [facility] Stop: 07/28/22 08:59 Last Admin: 06/30/22 08:23 Dose: 81 mg Atorvastatin Calcium (Atorvastatin 10 Mg Tab) 10 mg PO DAILY [facility] Stop: 07/28/22 08:59 Last Admin: 06/30/22 08:24 Dose: 10 mg Doxycycline Hyclate (Doxycycline Hyclate 100 Mg Cap) 100 mg PO BID [facility] Stop: 07/05/22 10:14 Last Admin: 06/30/22 08:24 Dose: 100 mg Heparin Sodium (Porcine) (Heparin Sod 5,000 Unit/0.5 Ml Vial) 5,000 units SQ Q12 [facility] Stop: 07/30/22 08:59 Promethazine HCl 6.25 mg/ (Sodium Chloride) 50.25 mls @ 201 mls/hr IV Q6H PRN PRN Reason: Nausea And Vomiting Stop: 07/28/22 00:15 Lisinopril (Lisinopril 20 Mg Tab) 20 mg PO DAILY [facility] Stop: 07/28/22 08:59 Last Admin: 06/28/22 08:08 Dose: 20 mg Melatonin (Melatonin 3 Mg Tab) 3 mg PO HS PRN PRN Reason: Sleep Stop: 07/28/22 21:29 Last Admin: 06/30/22 00:19 Dose: 3 mg Metoprolol Succinate (Metoprolol Succ 25mg Ext Rel Tab) 12.5 mg PO BID [facility] Stop: 07/29/22 03:39 Last Admin: 06/30/22 08:24 Dose: 12.5 mg Miscellaneous (Remove Nicoderm Patch) 1 each N/A DAILY@0859 [facility] Stop: 07/28/22 11:13 Last Admin: 06/29/22 08:12 Dose: 1 each Nicotine (Nicotine 21 Mg/24 Hr Tdsy) 21 mg TD QAM [facility] Stop: 07/28/22 11:14 Last Admin: 06/30/22 08:24 Dose: 21 mg Nitroglycerin (Nitroglycerin Sl 0.4 Mg/Tab Tab) 0.4 mg SL Q5M PRN PRN Reason: Chest Pain Stop: 07/28/22 00:15 Prednisone (Prednisone 20 Mg Tab) 40 mg PO DAILY [facility] Stop: 07/28/22 11:14 Last Admin: 06/30/22 08:24 Dose: 40 mg Sertraline HCl (Sertraline Hcl 50 Mg Tablet) 50 mg PO DAILY [facility] Stop: 07/28/22 08:59 Last Admin: 06/30/22 08:23 Dose: 50 mg Tramadol HCl (Tramadol Hcl 50 Mg Tablet) 25 mg PO Q4H PRN PRN Reason: Pain Stop: 07/28/22 00:15
--- NOTE | 2022-06-30 09:30 | Pulmonology Progress Note ---
Date of Service June 30, 2022 Assessment & Plan (1) Chronic bilateral pleural effusions: Plan: Status post thoracentesis 06/29/2022 of the right hemithorax. Fluid appears to be a transudate. Follow cytology and cultures. Likely etiology is CHF. Pleural effusion on the left is small and will defer thoracentesis at this time. (2) Ischemic cardiomyopathy: Plan: Currently being managed by the hospitalist service and cardiology. Diuresis on hold given MARQUIS. (3) Dyspnea on exertion: Plan: Likely secondary to severe cardiomyopathy. Consider palliative care consult. Plan Pulm to sign off. Thank you for the consult. Admission and Anticipated Discharge Date Admission Date: June 27, 2022 Subjective Patient doing well. Saturating 93% on room air. Denies any significant difference in his breathing compared to yesterday. Notes that he had a poor night with sleep and had insomnia last night. Review of Systems Review of Systems: All systems reviewed & are unremarkable except as noted in HPI & below Physical Exam 2 Physical Exam: Constitutional: Elderly and thin appearing male no apparent distress. Eyes: Pupils are equal round and reactive to light. Conjunctivae are normal. Anicteric sclera. Ears nose, mouth and throat: Mallampati class 1. Normal posterior oropharynx. Uvula is midline. Neck: Trachea is midline. Visual inspection is normal. Respiratory: Diminished breath sounds bilaterally. No wheezes. Mild crackles. Cardiovascular: Regular rate and rhythm. No murmurs. No edema. Gastrointestinal: Normal bowel sounds, soft, nontender and nondistended. No h epatosplenomegaly noted. Musculoskeletal: No cyanosis. Patient is able to move all extremities. Strength is 5 out of 5 in the upper and lower extremities. Skin: No rashes, warm dry and intact. Neurologic: No obvious focal neurological deficits seen. Psychiatric: Alert and oriented x3 with a euthymic affect. Results & Data Results & Data ([facility]) Vital Signs (Past 12 Hours) Vital Signs Temp Pulse Pulse Resp BP BP Pulse Ox 06/30/22 07:39 71 16 93 06/30/22 07:35 36.4 C L 71 19 97/63 L 92 06/30/22 04:00 76 20 94/58 L 92 06/30/22 01:55 75 06/30/22 00:00 06/29/22 23:56 36.4 C L 86 20 97/63 L 95 Pulse Ox O2 Del Method O2 Del Method 06/30/22 07:39 Room Air 06/30/22 07:35 Room Air 06/30/22 04:00 Room Air 06/30/22 01:55 06/30/22 00:00 95 Room Air 06/29/22 23:56 Room Air PG Care Time/CCT Total # of Minutes Spent Total Time Spent with Patient: Total time spent is greater than 50% in coordination of care (as documented) at patient's floor/unit and/or counseling patient: Coding Level of Care Code 83349 Subseq Hosp Care Lvl 2 Diagnoses Chronic bilateral pleural effusions J90 Ischemic cardiomyopathy I25.5 Dyspnea on exertion R06.09
[2022-06-30] MEDS: HEPARIN SOD 5,000 UNIT/0.5 ML VIAL SQ SCH ×2 (09:42→20:06)
--- NOTE | 2022-06-30 10:27 | Cardiology Progress Note ---
Date of Service June 30, 2022 Assessment & Plan (1) Acute hypoxemic respiratory failure: (2) COPD (chronic obstructive pulmonary disease): (3) Acute on chronic systolic HF (heart failure): (4) Atrial tachycardia, paroxysmal: (5) Paroxysmal VT: (6) Ischemic cardiomyopathy: Plan Patient admitted for SOB/hypoxia, acute respiratory failure, likely multifactorial with acute on chronic HFrEF (new diagnosis, but duration unknown), COPD exacerbation and b/l pleural effusions. Echo report reveals severely reduced LVEF at 20%, consistent with ischemic cardiomyopathy. This is likely a new finding of a chronic problem. No recent echo in medical records. He was tachycardic on admission with frequent ventricular ectopy and non sustained runs of VT, now improved on low dose metoprolol succinate. He had received multiple doses of furosemide since admission without significant diuresis. Creatinine increased. Diuretics on hold. Lisinopril on hold. Yesterday he underwent right sided thoracentesis with 1.1 L removed. Unfortunately respiratory status not significantly improved today. Ongoing audible wheezing naked with SOB. Creatinine unchanged and remains elevated. Elevated BUN. clinically patient appears volume depleted and would avoid additional diuretics today. Monitor I+O's. 1500 ml fluid restriction. Daily weight with standing scale. Consider resumption of low dose lisinopril and possible initiation of spironolactone in the future once renal function improves and if BP allows. Nursing staff asked to place patient back on oxygen and monitor closely. Continue ASA, statin, lisinopril (home meds) for underlying ischemic heart disease. HS troponin minimally elevated, not indicated of acute ACS, but consistent with respiratory failure, hypoxia. Pending his clinical course, once respiratory status improves, will consider ischemic work up as outpatient and possible cath at [facility] [place] [place]. Case to be discussed with Dr. Fitzpatrick. Admission and Anticipated Discharge Date Admission Date: June 27, 2022 Supervising Physician Co-Signing Physician Notes Supervising Physician Attestation: I have personally performed a history and physical examination on the patient. I agree with the physician certified teacher assistant's findings and plan as documented with the following additions. Subjective: Patient seen and examined by the undersigned just after 6 PM. Compared to when I had seen him yesterday, and compared to report of physical exam this morning, patient significantly improved. Wheezing has resolved. Breath sounds the right base improved status post thoracentesis 06/29/2022. Exam: Pulmonary: Mildly decreased breath sounds left base. Diffuse expiratory wheezing previously noted improved at the time of my assessment, 6 PM, 06/30/2022 Cardiovascular: Regular rhythm, 1/6 systolic murmur, no edema : Peña catheter in place draining clear yellow urine Data: Creatinine relatively stable, 1.80, compared to 1.8 on 06/29/2022 Assessment and Plan: Multifactorial respiratory insufficiency including acute exacerbation COPD, new acute heart failure with severe left ventricular systolic dysfunction (heart failure reduced ejection fraction) likely on the basis of ischemic cardiomyopathy based on clinical history and echocardiogram results Episodes of nonsustained ventricular tachycardia have been noted typically during sleep, most recent episode was 8 beats in duration on 06/30/2022 for 11 AM -Repeat renal function panel 07/01, will reconsider reinitiating diuretics based on how renal function is doing -Continue to hold lisinopril. -Continue metoprolol, atorvastatin, aspirin. Patient is also on doxycycline, prednisone, duo nebs. Continue subcutaneous heparin for DVT prophylaxis. A long discussion with the patient, his grandson, and his 2 daughters were in the room. Patient's daughter, Dajuan, with like to be updated with regards to his condition. Dwight Fitzpatrick, DO Subjective Patient resting in bed comfortably. Awakens easily. reports ongoing cough, SOB, wheeze, not significantly changed despite right thoracentesis with removal of 1.1 L yesterday. Denies chest pain. No fever or chills. No orthopnea, PND or edema. Review of Systems Review of Systems: All systems reviewed & are unremarkable except as noted in HPI & below Physical Exam Constitutional: well developed; no acute distress Neck: trachea midline, no thyromegaly Respiratory: + audible wheezes; no respiratory distress and no labored breathing Auscultation: + diminished lung sounds (bases b/l) and + wheezes (expiratory b/l) Cardiovascular: Rate/Rhythm: regular rate and regular rhythm (with ectopy) Heart Sounds: normal S1, normal S2 and + murmur (I/ systolic murmur) Vessels: no JVD Extremities: no edema Gastrointestinal (Abdomen): normal bowel sounds, soft, nontender, no hepatosplenomegaly Skin: no rashes, warm and dry Neurologic: PERRL, EOMI, accommodation nl, no face palsy, no dysarthria Psychiatric: A+Ox3, euthymic affect Results & Data ([facility] [place]) Vital Signs (Past 12 Hours) Vital Signs Temp Pulse Pulse Resp BP BP Pulse Ox 06/30/22 07:39 71 16 93 06/30/22 07:35 36.4 C L 71 19 97/63 L 92 06/30/22 04:00 76 20 94/58 L 92 06/30/22 01:55 75 06/30/22 00:00 06/29/22 23:56 36.4 C L 86 20 97/63 L 95 Pulse Ox O2 Del Method O2 Del Method 06/30/22 07:39 Room Air 06/30/22 07:35 Room Air 06/30/22 04:00 Room Air 06/30/22 01:55 06/30/22 00:00 95 Room Air 06/29/22 23:56 Room Air Laboratory Results CBC 06/30/22 Range/Units 07:15 WBC 17.02 H (4.8-10.8) K/ul RBC 4.95 (4.63-6.08) M/uL Hgb 14.7 (14.0-18.0) g/dl Hct 42.7 (40.1-51.0) % Plt Count 203 (130-400) K/uL Comprehensive Metabolic Panel 06/30/22 Range/Units 07:15 Sodium 140 (136-145) mmol/L Potassium 4.3 (3.5-5.1) mmol/L Chloride 108 H (98-107) mmol/L Carbon Dioxide 24 (21-32) mmol/L BUN 80 H D (6-23) mg/dl Creatinine 1.88 H (0.6-1.4) mg/dl Glucose 102 H (70-99(Fasting)) mg/dl Calcium 8.9 (8.5-10.1) mg/dl Intake and Output 06/29/22 06/30/22 06/30/22 22:59 06:59 14:59 Intake Total 100 / 520 Output Total 150 / 412 100 / 412 Balance -50 / 108 -100 / 108 Intake: Oral 100 / 520 Output: Urine Amount (Catheter) 150 / 410 100 / 410 Peña/Indwelling 150 / 410 100 / 410 Diagnostic Findings Telemetry reviewed: NSR in the 60-70's with PAC's. One run of non sustained VT lasting 8 beats around 4:11 AM Chest xray reviewed post thoracentesis yesterday IMPRESSION: 1. No pneumothorax following right thoracentesis. Significant decrease in size of the right pleural effusion. 2. Small left pleural effusion. 3. Cardiomegaly with mild pulmonary edema, improved since prior exam. Medications Administered Current Inpatient Medications Acetaminophen (Acetaminophen 325 Mg Tab) 650 mg PO Q4H PRN PRN Reason: Pain or Fever Stop: 07/28/22 00:15 Albuterol (Albut/Ipratrop 3mg/0.5mg Neb 3 Ml Vial) 3 ml NEB Q6R [facility]; Protocol Stop: 07/28/22 12:59 Last Admin: 06/30/22 07:38 Dose: 3 ml Aspirin (Aspirin 81 Mg Ectab) 81 mg PO DAILY [facility] Stop: 07/28/22 08:59 Last Admin: 06/30/22 08:23 Dose: 81 mg Atorvastatin Calcium (Atorvastatin 10 Mg Tab) 10 mg PO DAILY [facility] Stop: 07/28/22 08:59 Last Admin: 06/30/22 08:24 Dose: 10 mg Doxycycline Hyclate (Doxycycline Hyclate 100 Mg Cap) 100 mg PO BID [facility] Stop: 07/05/22 10:14 Last Admin: 06/30/22 08:24 Dose: 100 mg Heparin Sodium (Porcine) (Heparin Sod 5,000 Unit/0.5 Ml Vial) 5,000 units SQ Q12 [facility] Stop: 07/30/22 08:59 Last Admin: 06/30/22 09:42 Dose: 5,000 units Promethazine HCl 6.25 mg/ (Sodium Chloride) 50.25 mls @ 201 mls/hr IV Q6H PRN PRN Reason: Nausea And Vomiting Stop: 07/28/22 00:15 Lisinopril (Lisinopril 20 Mg Tab) 20 mg PO DAILY [facility] Stop: 07/28/22 08:59 Last Admin: 06/28/22 08:08 Dose: 20 mg Melatonin (Melatonin 3 Mg Tab) 3 mg PO HS PRN PRN Reason: Sleep Stop: 07/28/22 21:29 Last Admin: 06/30/22 00:19 Dose: 3 mg Metoprolol Succinate (Metoprolol Succ 25mg Ext Rel Tab) 12.5 mg PO BID [facility] Stop: 07/29/22 03:39 Last Admin: 06/30/22 08:24 Dose: 12.5 mg Miscellaneous (Remove Nicoderm Patch) 1 each N/A DAILY@0859 [facility] Stop: 07/28/22 11:13 Last Admin: 06/30/22 09:42 Dose: Not Given Nicotine (Nicotine 21 Mg/24 Hr Tdsy) 21 mg TD QAM [facility] Stop: 07/28/22 11:14 Last Admin: 06/30/22 08:24 Dose: 21 mg Nitroglycerin (Nitroglycerin Sl 0.4 Mg/Tab Tab) 0.4 mg SL Q5M PRN PRN Reason: Chest Pain Stop: 07/28/22 00:15 Prednisone (Prednisone 20 Mg Tab) 40 mg PO DAILY [facility] Stop: 07/28/22 11:14 Last Admin: 06/30/22 08:24 Dose: 40 mg Sertraline HCl (Sertraline Hcl 50 Mg Tablet) 50 mg PO DAILY [facility] Stop: 07/28/22 08:59 Last Admin: 06/30/22 08:23 Dose: 50 mg Tramadol HCl (Tramadol Hcl 50 Mg Tablet) 25 mg PO Q4H PRN PRN Reason: Pain Stop: 07/28/22 00:15 (1) COPD (chronic obstructive pulmonary disease) COPD type: COPD with acute exacerbation Qualified Code(s): J44.1 - Chronic obstructive pulmonary disease with (acute) exacerbation
[2022-06-30] MEDS ORDERED: MECLIZINE HCL 25 MG TAB PO PRN (11:58)
[2022-07-01] MEDS: ALBUT/IPRATROP 3MG/0.5MG NEB 3 ML VIAL NEB SCH ×4 (01:07→19:29)
--- NOTE | 2022-07-01 07:45 | Hospitalist Progress Note ---
Date of Service July 01, 2022 Assessment & Plan (1) Acute hypoxemic respiratory failure: Plan: Acute hypoxemic respiratory failure -resolved Likely secondary to COPD, CHF exacerbation Supplemental oxygen as needed Monitor Acute on chronic systolic heart failure B/L Pleural effusion --CXR:Cardiomegaly with unchanged pulmonary edema. Stable right greater than left layering pleural effusions with bibasilar consolidation. --ECHO: Left ventricle is moderately dilated. EF 20 to 25%. Diffuse hypokinesis to akinesis. Aortic valve sclerosis moderate, without significant aortic valvular stenosis. Mild aortic regurgitation. Moderate mitral regurgitation. Moderate sized left pleural effusion. Moderate size right pleural effusion --Received IV lasix Monitor I/Os, daily weight Monitor Volume status Appreciate Cardiology Input May need ischemic work-up once respiratory status improved S/ p R thoracentesis (06/29), removal of 1.1L, likely transudate 2/2 CHF, cytology negative holding off furosemide, Cr improved at 1.5 Continue metoprolol succinate 12.5 mg twice daily (new medication) -Prior to hospital dose of lisinopril 20 mg daily has been on hold due to renal insufficiency, will plan on resuming tomorrow, at dose of 10 mg -Continue aspirin 81 mg daily, atorvastatin 10 mg daily - likely discharge home, perhaps on 07/02 with [facility]oll Life Vest. Acute Bronchitis Suspected COPD Exacerbation Ongoing tobacco abuse Started on doxycycline Continue prednisone, and fabiola de la o Counseled to quit smoking Needs outpatient PFTs Supplemental oxygen as needed Consulted Pulmonology Acute Kidney Injury Likely due to diuretics Hold Lasix, lisinopril today Monitor renal function Avoid nephrotoxic agents as able next Cr: 1.4 today NSVT Continue metoprolol Replace electrolytes as needed Monitor further plan as above (life vest and further cardiology work-up as outpt) CAD S/P Stent Continue aspirin, Lipitor, metoprolol Hypertension Continue metoprolol, lisinopril Monitor Hyperlipidemia on statin Prediabetes HbA1c 5.8 DVT Px: Lovenox SQ Code Status Full code Admission and Anticipated Discharge Date Admission Date: June 27, 2022 Subjective Patient is seen in follow up of dyspnea, pl. effusions, CHF (EF 20%) Underwent right thoracentesis Currently sitting up in bed, in no acute distress, eating dinner Reports breathing is much improved Breathing comfortably on room air, saturating at 92% Currently denies any fevers, chills, chest pain. No abdominal pain nausea or vomiting. Cardiology and pulmonary medicine consulted. Plan for lifevest tmrw Review of Systems Review of Systems: All systems reviewed & are unremarkable except as noted in Subjective Physical Exam Physical Exam: General Appearance: thin elderly M in no apparent distress Head: normocephalic, Atraumatic Eyes: normal inspection, EOMI Neck: supple Respiratory/Chest: No accessory muscle use, mild crackles at bases (R>L), no wheezing Cardiovascular: S1, S2, + murmur Abdomen/GI:Soft, Non tender, Bowel sounds present Extremities/Musculoskeletal:normal inspection, 1+ B/L LE edema Neurologic/Psych:AAOX3, grossly no focal neurological deficits Skin: normal color, warm Results & Data Results & Data ([facility]) Vital Signs (Past 12 Hours) Vital Signs Temp Pulse Pulse Resp BP Pulse Ox O2 Del Method 07/01/22 07:30 72 18 94 Room Air 07/01/22 02:51 36.7 C 66 18 130/76 92 Room Air 06/30/22 22:15 65 07/01/22 01:07 73 18 94 Room Air 06/30/22 23:13 36.4 C L 83 18 118/72 95 Room Air Laboratory Results 07/01/22 07/01/22 Range/Units 08:21 08:21 WBC 15.77 H (4.8-10.8) K/ul RBC 4.97 (4.63-6.08) M/uL Hgb 14.5 (14.0-18.0) g/dl Hct 43.8 (40.1-51.0) % MCV 88.1 (80.0-100.0) fL MCH 29.2 (25.0-34.0) pg MCHC 33.1 (32.0-36.0) g/dL RDW Std Deviation 49.5 H (36.4-46.3) fL RDW Coeff of Yovana 15.5 H (11.5-14.5) % Plt Count 188 (130-400) K/uL MPV 12.1 (9.4-12.4) fL Sodium 140 (136-145) mmol/L Potassium 4.3 (3.5-5.1) mmol/L Chloride 110 H (98-107) mmol/L Carbon Dioxide 22 (21-32) mmol/L Anion Gap 8 (3-11) BUN 82 H (6-23) mg/dl Creatinine 1.46 H D (0.6-1.4) mg/dl Est Cr Clr Drug Dosing 33.2 ml/min Est GFR ( Amer) 51.5 ml/min Est GFR (Non-Af Amer) 44.5 ml/min BUN/Creatinine Ratio 56.2 H (10-20) Glucose 101 H (70-99(Fasting)) mg/dl Calcium 8.9 (8.5-10.1) mg/dl Phosphorus 3.7 (2.5-4.9) mg/dl Magnesium 2.3 (1.7-2.4) mg/dl Medications Administered Current Inpatient Medications Acetaminophen (Acetaminophen 325 Mg Tab) 650 mg PO Q4H PRN PRN Reason: Pain or Fever Stop: 07/28/22 00:15 Albuterol (Albut/Ipratrop 3mg/0.5mg Neb 3 Ml Vial) 3 ml NEB Q6R [facility]; Protocol Stop: 07/28/22 12:59 Last Admin: 07/01/22 07:29 Dose: 3 ml Aspirin (Aspirin 81 Mg Ectab) 81 mg PO DAILY [facility] Stop: 07/28/22 08:59 Last Admin: 06/30/22 08:23 Dose: 81 mg Atorvastatin Calcium (Atorvastatin 10 Mg Tab) 10 mg PO DAILY [facility] Stop: 07/28/22 08:59 Last Admin: 06/30/22 08:24 Dose: 10 mg Doxycycline Hyclate (Doxycycline Hyclate 100 Mg Cap) 100 mg PO BID [facility] Stop: 07/05/22 10:14 Last Admin: 06/30/22 20:04 Dose: 100 mg Heparin Sodium (Porcine) (Heparin Sod 5,000 Unit/0.5 Ml Vial) 5,000 units SQ Q12 [facility] Stop: 07/30/22 08:59 Last Admin: 06/30/22 20:06 Dose: 5,000 units Promethazine HCl 6.25 mg/ (Sodium Chloride) 50.25 mls @ 201 mls/hr IV Q6H PRN PRN Reason: Nausea And Vomiting Stop: 07/28/22 00:15 Last Infusion: 06/30/22 13:32 Dose: Infused Lisinopril (Lisinopril 20 Mg Tab) 20 mg PO DAILY [facility] Stop: 07/28/22 08:59 Last Admin: 06/28/22 08:08 Dose: 20 mg Meclizine HCl (Meclizine Hcl 25 Mg Tab) 25 mg PO TID PRN PRN Reason: Dizziness or Vertigo Stop: 07/30/22 11:57 Last Admin: 06/30/22 12:42 Dose: 25 mg Melatonin (Melatonin 3 Mg Tab) 3 mg PO HS PRN PRN Reason: Sleep Stop: 07/28/22 21:29 Last Admin: 06/30/22 00:19 Dose: 3 mg Metoprolol Succinate (Metoprolol Succ 25mg Ext Rel Tab) 12.5 mg PO BID [facility] Stop: 07/29/22 03:39 Last Admin: 06/30/22 20:03 Dose: 12.5 mg Miscellaneous (Remove Nicoderm Patch) 1 each N/A DAILY@0859 [facility] Stop: 07/28/22 11:13 Last Admin: 06/30/22 09:42 Dose: Not Given Nicotine (Nicotine 21 Mg/24 Hr Tdsy) 21 mg TD QAM [facility] Stop: 07/28/22 11:14 Last Admin: 06/30/22 08:24 Dose: 21 mg Nitroglycerin (Nitroglycerin Sl 0.4 Mg/Tab Tab) 0.4 mg SL Q5M PRN PRN Reason: Chest Pain Stop: 07/28/22 00:15 Prednisone (Prednisone 20 Mg Tab) 40 mg PO DAILY [facility] Stop: 07/28/22 11:14 Last Admin: 06/30/22 08:24 Dose: 40 mg Sertraline HCl (Sertraline Hcl 50 Mg Tablet) 50 mg PO DAILY [facility] Stop: 07/28/22 08:59 Last Admin: 06/30/22 08:23 Dose: 50 mg Tramadol HCl (Tramadol Hcl 50 Mg Tablet) 25 mg PO Q4H PRN PRN Reason: Pain Stop: 07/28/22 00:15
[2022-07-01] MEDS: HEPARIN SOD 5,000 UNIT/0.5 ML VIAL SQ SCH ×2 (08:12→19:21)
[2022-07-01] MEDS: NICOTINE 21 MG/24 HR TDSY TD SCH (08:12)
[2022-07-01] MEDS: ASPIRIN 81 MG ECTAB PO SCH (08:12)
[2022-07-01] MEDS: ATORVASTATIN 10 MG TAB PO SCH (08:13)
[2022-07-01] MEDS: METOPROLOL SUCC 25MG EXT REL TAB PO SCH ×2 (08:13→19:21)
[2022-07-01] MEDS: predniSONE 20 MG TAB PO SCH (08:13)
[2022-07-01] MEDS: SERTRALINE HCL 50 MG TABLET PO SCH (08:13)
[2022-07-01] MEDS: DOXYCYCLINE HYCLATE 100 MG CAP PO SCH ×2 (08:13→19:21)
[2022-07-01 08:41] LABS: Hematocrit (blood only) 43.8 % (40.1-51.0); Hemoglobin 14.5 g/dl (14.0-18.0); Mean Corpuscular Hemoglobin 29.2 pg (25.0-34.0); Mean Corpuscular Hgb Conc 33.1 g/dL (32.0-36.0); Mean Corpuscular Volume 88.1 fL (80.0-100.0); Mean Platelet Volume 12.1 fL (9.4-12.4); Platelet Count 188 K/uL (130-400); RDW Coefficient of Variation 15.5 % (11.5-14.5); RDW Standard Deviation 49.5 fL (36.4-46.3); Red Blood Count 4.97 M/uL (4.63-6.08); White Blood Count 15.77 K/ul (4.8-10.8)
[2022-07-01 09:04] LABS: BUN Creatinine Ratio 56.2 (10-20); Calcium 8.9 mg/dl (8.5-10.1); Creatinine Clr Calc Pharmacy 33.2 ml/min; Est GFR (African American) 51.5 ml/min; Est GFR (Non-African American) 44.5 ml/min; Magnesium 2.3 mg/dl (1.7-2.4); Phosphorus 3.7 mg/dl (2.5-4.9); Potassium 4.3 mmol/L (3.5-5.1)
--- NOTE | 2022-07-01 09:52 | Cardiology Progress Note ---
Date of Service July 01, 2022 Assessment & Plan (1) Acute hypoxemic respiratory failure: (2) COPD (chronic obstructive pulmonary disease): (3) Acute on chronic systolic HF (heart failure): (4) Atrial tachycardia, paroxysmal: (5) Paroxysmal VT: (6) Ischemic cardiomyopathy: Plan Patient admitted for SOB/hypoxia, acute respiratory failure, likely multifactorial with acute on chronic HFrEF (new diagnosis, but duration unknown), COPD exacerbation with b/l pleural effusions. Echo report reveals severely reduced LVEF at 20%, consistent with ischemic cardiomyopathy. This is likely a new finding of a chronic problem. No recent echo in medical records. He was tachycardic on admission with frequent ventricular ectopy and non sustained runs of VT. HR's and ventricular ectopy now improving low dose metoprolol succinate. His low BP limits dose of beta shanna. He continues to have brief non sustained runs of VT, most during sleep. Would benefit from Life Vest upon discharge to prevent ventricular arrhythmias and SCD. This was discussed in detail with the patient. He is unsure if he would like to wear this "contraption". He is aware of risk. He will think about it this afternoon. Will need to be arranged upon discharge if he decides to proceed. Given his underling cardiomyopathy, recommend proceeding with outpatient cardiac MRI for viability of his myocardium, pending improvement in his renal function. Lisinopril remains on hold due to MARQUIS. Likely will need lower dose admission. Continue metoprolol succinate. Continue ASA, statin. Creatinine has improved this morning down to 1.4 and closer to baseline. He will likely benefit from low dose furosemide on discharge to maintain fluid status. Monitor I+O's. 1500 ml fluid restriction. Daily weight with standing scale. HS troponin minimally elevated, not indicated of acute ACS, but consistent with respiratory failure, hypoxia. Case to be discussed with Dr. Fitzpatrick. Admission and Anticipated Discharge Date Admission Date: June 27, 2022 Supervising Physician Co-Signing Physician Notes Supervising Physician Attestation: I have personally performed a history and physical examination on the patient. I agree with the physician costumer assistant's findings and plan as documented with the following additions. Subjective: Patient without complaints. Audible wheezing grossly improved over the last 48 hours. He is now on room air, most recent pulse oximetry 95%. Afebrile. Exam: Pulmonary: Mildly reduced breath sounds bilaterally, but overall much improved, wheezing resolved Cardiovascular: Regular rhythm, no murmurs, no edema Data: Telemetry today reveals sinus rhythm in the 70s with occasional PVCs. There was a 12 beat run of nonsustained ventricular tachycardia this morning at 9:21 AM. A 6 beat run of nonsustained ventricular tachycardia have been observed overnight. Creatinine today 1.46, down from 1.88 on 06/30/2022, EGFR 44 mL/min/m Assessment and Plan: Acute heart failure with reduced ejection fraction, severe left ventricular systolic dysfunction, likely due to ischemic cardiomyopathy -Status post right thoracentesis 06/29/2022, yielding 1.1 L transudative fluid. Cytology negative. -Holding off on additional furosemide today as his creatinine improves. -Continue metoprolol succinate 12.5 mg twice daily (new medication -Prior to hospital dose of lisinopril 20 mg daily has been on hold due to renal insufficiency, will plan on resuming tomorrow, at dose of 10 mg -Continue aspirin 81 mg daily, atorvastatin 10 mg daily -Tentative plan would be discharged home, perhaps on 07/02 with Zoll Life Vest. 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 We will plan on outpatient MRI with gadolinium (as long as GFR remains > 30 mL/min/m) for repeat assessment of ejection fraction, and for assessment of scar burden/viability prior to consideration of high risk cardiac catheterization which would likely take place at a tertiary center, [facility] [place]. -Overall, medication therapy likely the most prudent, best option for the patient. -We will proceed with LifeVest while the above work-up is underway, with consideration of AICD in future if patient's ejection fraction remains less than or equal to 35% and if that is within his wishes. This is all new to him, so there is a lot for the patient and family to think about. Case discussed at [facility] with Dr Perez by phone. DVT prophylaxis: Subcutaneous heparin Dwight Fitzpatrick, Subjective Patient resting in bed comfortably. Cough with sputum production noted today. SOB improved from admission. Tolerating RA and no need for supplemental O2. No chest pain. No sense of palpitations or tachypalpitations. No dizziness or syncope. no orthopnea, PND or edema. Review of Systems Review of Systems: All systems reviewed & are unremarkable except as noted in HPI & below Physical Exam Constitutional: well developed; no acute distress Neck: trachea midline, no thyromegaly Respiratory: no respiratory distress and no labored breathing Auscultation: + diminished lung sounds (bases b/l) Cardiovascular: Rate/Rhythm: regular rate and regular rhythm (with ectopy) Heart Sounds: normal S1, normal S2 and + murmur (I/ systolic murmur) Vessels: no JVD Extremities: no edema Gastrointestinal (Abdomen): normal bowel sounds, soft, nontender, no hepatosplenomegaly Skin: no rashes, warm and dry Neurologic: PERRL, EOMI, accommodation nl, no face palsy, no dysarthria Psychiatric: A+Ox3, euthymic affect Results & Data ([facility]) Vital Signs (Past 12 Hours) Vital Signs Temp Pulse Pulse Resp BP BP Pulse Ox 07/01/22 07:56 36.4 C L 80 18 108/68 98 07/01/22 07:30 72 18 94 07/01/22 02:51 36.7 C 66 18 130/76 92 06/30/22 22:15 65 07/01/22 01:07 73 18 94 06/30/22 23:13 36.4 C L 83 18 118/72 95 O2 Del Method 07/01/22 07:56 Room Air 07/01/22 07:30 Room Air 07/01/22 02:51 Room Air 06/30/22 22:15 07/01/22 01:07 Room Air 06/30/22 23:13 Room Air Laboratory Results CBC 07/01/22 Range/Units 08:21 WBC 15.77 H (4.8-10.8) K/ul RBC 4.97 (4.63-6.08) M/uL Hgb 14.5 (14.0-18.0) g/dl Hct 43.8 (40.1-51.0) % Plt Count 188 (130-400) K/uL Comprehensive Metabolic Panel 07/01/22 Range/Units 08:21 Sodium 140 (136-145) mmol/L Potassium 4.3 (3.5-5.1) mmol/L Chloride 110 H (98-107) mmol/L Carbon Dioxide 22 (21-32) mmol/L BUN 82 H (6-23) mg/dl Creatinine 1.46 H D (0.6-1.4) mg/dl Glucose 101 H (70-99(Fasting)) mg/dl Calcium 8.9 (8.5-10.1) mg/dl Intake and Output 06/30/22 07/01/22 07/01/22 22:59 06:59 14:59 Intake Total 150 / 780.25 200 / 780.25 Output Total 250 / 1800 350 / 1800 Balance -100 / -1019.75 -150 / -1019.75 Intake: Oral 150 / 730 200 / 730 Output: Urine Amount (Catheter) 250 / 1800 350 / 1800 Peña/Indwelling 250 / 1800 350 / 1800 Other: Weight 61 kg Diagnostic Findings Telemetry reviewed: NSR with occ PAC. 1 non sustained episode of VT lasting 6 beats around 1:10 AM last night Medications Administered Current Inpatient Medications Acetaminophen (Acetaminophen 325 Mg Tab) 650 mg PO Q4H PRN PRN Reason: Pain or Fever Stop: 07/28/22 00:15 Albuterol (Albut/Ipratrop 3mg/0.5mg Neb 3 Ml Vial) 3 ml NEB Q6R [facility]; Protocol Stop: 07/28/22 12:59 Last Admin: 07/01/22 07:29 Dose: 3 ml Aspirin (Aspirin 81 Mg Ectab) 81 mg PO DAILY [facility] Stop: 07/28/22 08:59 Last Admin: 07/01/22 08:12 Dose: 81 mg Atorvastatin Calcium (Atorvastatin 10 Mg Tab) 10 mg PO DAILY [facility] Stop: 07/28/22 08:59 Last Admin: 07/01/22 08:13 Dose: 10 mg Doxycycline Hyclate (Doxycycline Hyclate 100 Mg Cap) 100 mg PO BID [facility] Stop: 07/05/22 10:14 Last Admin: 07/01/22 08:13 Dose: 100 mg Heparin Sodium (Porcine) (Heparin Sod 5,000 Unit/0.5 Ml Vial) 5,000 units SQ Q12 [facility] Stop: 07/30/22 08:59 Last Admin: 07/01/22 08:12 Dose: 5,000 units Promethazine HCl 6.25 mg/ (Sodium Chloride) 50.25 mls @ 201 mls/hr IV Q6H PRN PRN Reason: Nausea And Vomiting Stop: 07/28/22 00:15 Last Infusion: 06/30/22 13:32 Dose: Infused Lisinopril (Lisinopril 20 Mg Tab) 20 mg PO DAILY [facility] Stop: 07/28/22 08:59 Last Admin: 06/28/22 08:08 Dose: 20 mg Meclizine HCl (Meclizine Hcl 25 Mg Tab) 25 mg PO TID PRN PRN Reason: Dizziness or Vertigo Stop: 07/30/22 11:57 Last Admin: 06/30/22 12:42 Dose: 25 mg Melatonin (Melatonin 3 Mg Tab) 3 mg PO HS PRN PRN Reason: Sleep Stop: 07/28/22 21:29 Last Admin: 06/30/22 00:19 Dose: 3 mg Metoprolol Succinate (Metoprolol Succ 25mg Ext Rel Tab) 12.5 mg PO BID [facility] Stop: 07/29/22 03:39 Last Admin: 07/01/22 08:13 Dose: 12.5 mg Miscellaneous (Remove Nicoderm Patch) 1 each N/A DAILY@0859 [facility] Stop: 07/28/22 11:13 Last Admin: 07/01/22 08:13 Dose: 1 each Nicotine (Nicotine 21 Mg/24 Hr Tdsy) 21 mg TD QAM [facility] Stop: 07/28/22 11:14 Last Admin: 07/01/22 08:12 Dose: 21 mg Nitroglycerin (Nitroglycerin Sl 0.4 Mg/Tab Tab) 0.4 mg SL Q5M PRN PRN Reason: Chest Pain Stop: 07/28/22 00:15 Prednisone (Prednisone 20 Mg Tab) 40 mg PO DAILY [facility] Stop: 07/28/22 11:14 Last Admin: 07/01/22 08:13 Dose: 40 mg Sertraline HCl (Sertraline Hcl 50 Mg Tablet) 50 mg PO DAILY [facility] Stop: 07/28/22 08:59 Last Admin: 07/01/22 08:13 Dose: 50 mg Tramadol HCl (Tramadol Hcl 50 Mg Tablet) 25 mg PO Q4H PRN PRN Reason: Pain Stop: 07/28/22 00:15 (1) COPD (chronic obstructive pulmonary disease) COPD type: COPD with acute exacerbation Qualified Code(s): J44.1 - Chronic obstructive pulmonary disease with (acute) exacerbation
--- NOTE | 2022-07-01 16:55 | Communication Note ---
Date of Service: July 01, 2022 Faxed Life Vest order , demographics page, cardiology notes and echo report to Bianca.
[2022-07-02] MEDS: ALBUT/IPRATROP 3MG/0.5MG NEB 3 ML VIAL NEB SCH ×3 (00:08→12:38)
--- NOTE | 2022-07-02 07:54 | Hospitalist Progress Note ---
Date of Service July 02, 2022 Assessment & Plan (1) Acute hypoxemic respiratory failure: Plan: Acute hypoxemic respiratory failure -resolved Likely secondary to CHF and copd exacerbation Supplemental oxygen as needed - currently on RA Monitor Acute on chronic systolic heart failure B/L Pleural effusion --CXR:Cardiomegaly with unchanged pulmonary edema. Stable right greater than left layering pleural effusions with bibasilar consolidation. --ECHO: Left ventricle is moderately dilated. EF 20 to 25%. Diffuse hypokinesis to akinesis. Aortic valve sclerosis moderate, without significant aortic valvular stenosis. Mild aortic regurgitation. Moderate mitral regurgitation. Moderate sized left pleural effusion. Moderate size right pleural effusion --Received IV lasix Monitor I/Os, daily weight Monitor Volume status Appreciate Cardiology Input May need ischemic work-up once respiratory status improved S/ p R thoracentesis (06/29), removal of 1.1L, likely transudate 2/2 CHF, cytology negative Cr improved at 1.4 Continue metoprolol succinate 25 mg daily (new medication) -Prior to hospital dose of lisinopril 20 mg daily - dose to 10 mg -Continue aspirin 81 mg daily, atorvastatin 10 mg daily -Plan to discharge home today (07/02) with Zoll Life Vest. Acute Bronchitis Suspected COPD Exacerbation Ongoing tobacco abuse Started on doxycycline Continue prednisone, and duo pedros Counseled to quit smoking Needs outpatient PFTs Supplemental oxygen as needed Consulted Pulmonology Acute Kidney Injury Likely due to diuretics Avoid nephrotoxic agents as able next Cr: 1.4 today - likely new baseline NSVT Continue metoprolol Replace electrolytes as needed Monitor further plan as above (life vest and further cardiology work-up as outpt, cardiac MRI) CAD S/P Stent Continue aspirin, Lipitor, metoprolol Hypertension Continue metoprolol - new medication 25 mg daily lisinopril- decrease dose to 10 mg Monitor Hyperlipidemia - cont. on atorvastatin 10 mg Prediabetes: HbA1c 5.8 DVT Px: Lovenox SQ Code Status : Full code Admission and Anticipated Discharge Date Admission Date: June 27, 2022 Subjective Patient is seen in follow up of dyspnea, pl. effusions, CHF (EF 20%) Underwent right thoracentesis Currently sitting up in bed, in no acute distress Reports breathing is improved Breathing comfortably on room air, saturating at 94% Currently denies any fevers, chills, chest pain. No abdominal pain nausea or vomiting. Cardiology and pulmonary medicine consulted. Plan for lifevest today, and DC Review of Systems Review of Systems: All systems reviewed & are unremarkable except as noted in Subjective Physical Exam Physical Exam: General Appearance: thin elderly M in no apparent distress Head: normocephalic, Atraumatic Eyes: normal inspection, EOMI Neck: supple Respiratory/Chest: No accessory muscle use, mild crackles noted, no wheezing Cardiovascular: S1, S2, + murmur Abdomen/GI:Soft, Non tender, Bowel sounds present Extremities/Musculoskeletal:normal inspection, 1+ B/L LE edema Neurologic/Psych:AAOX3, grossly no focal neurological deficits Skin: normal color, warm Results & Data Results & Data ([facility]) Vital Signs (Past 12 Hours) Vital Signs Temp Pulse Resp BP Pulse Ox O2 Del Method 07/02/22 07:35 54 L 18 94 Room Air 07/02/22 07:27 36.3 C L 67 18 110/73 93 Room Air 07/02/22 03:12 36.6 C 69 18 121/75 94 Room Air 07/02/22 00:05 Room Air 07/02/22 00:08 69 16 94 Room Air 07/01/22 22:45 36.4 C L 70 18 129/79 96 Room Air Laboratory Results 07/01/22 07/01/22 Range/Units 08:21 08:21 WBC 15.77 H (4.8-10.8) K/ul RBC 4.97 (4.63-6.08) M/uL Hgb 14.5 (14.0-18.0) g/dl Hct 43.8 (40.1-51.0) % MCV 88.1 (80.0-100.0) fL MCH 29.2 (25.0-34.0) pg MCHC 33.1 (32.0-36.0) g/dL RDW Std Deviation 49.5 H (36.4-46.3) fL RDW Coeff of Yovana 15.5 H (11.5-14.5) % Plt Count 188 (130-400) K/uL MPV 12.1 (9.4-12.4) fL Sodium 140 (136-145) mmol/L Potassium 4.3 (3.5-5.1) mmol/L Chloride 110 H (98-107) mmol/L Carbon Dioxide 22 (21-32) mmol/L Anion Gap 8 (3-11) BUN 82 H (6-23) mg/dl Creatinine 1.46 H D (0.6-1.4) mg/dl Est Cr Clr Drug Dosing 33.2 ml/min Est GFR ( Amer) 51.5 ml/min Est GFR (Non-Af Amer) 44.5 ml/min BUN/Creatinine Ratio 56.2 H (10-20) Glucose 101 H (70-99(Fasting)) mg/dl Calcium 8.9 (8.5-10.1) mg/dl Phosphorus 3.7 (2.5-4.9) mg/dl Magnesium 2.3 (1.7-2.4) mg/dl Medications Administered Current Inpatient Medications Acetaminophen (Acetaminophen 325 Mg Tab) 650 mg PO Q4H PRN PRN Reason: Pain or Fever Stop: 07/28/22 00:15 Albuterol (Albut/Ipratrop 3mg/0.5mg Neb 3 Ml Vial) 3 ml NEB Q6R [facility]; Protocol Stop: 07/28/22 12:59 Last Admin: 07/02/22 07:34 Dose: 3 ml Aspirin (Aspirin 81 Mg Ectab) 81 mg PO DAILY [facility] Stop: 07/28/22 08:59 Last Admin: 07/01/22 08:12 Dose: 81 mg Atorvastatin Calcium (Atorvastatin 10 Mg Tab) 10 mg PO DAILY [facility] Stop: 07/28/22 08:59 Last Admin: 07/01/22 08:13 Dose: 10 mg Doxycycline Hyclate (Doxycycline Hyclate 100 Mg Cap) 100 mg PO BID [facility] Stop: 07/05/22 10:14 Last Admin: 07/01/22 19:21 Dose: 100 mg Heparin Sodium (Porcine) (Heparin Sod 5,000 Unit/0.5 Ml Vial) 5,000 units SQ Q12 [facility] Stop: 07/30/22 08:59 Last Admin: 07/01/22 19:21 Dose: 5,000 units Promethazine HCl 6.25 mg/ (Sodium Chloride) 50.25 mls @ 201 mls/hr IV Q6H PRN PRN Reason: Nausea And Vomiting Stop: 07/28/22 00:15 Last Infusion: 06/30/22 13:32 Dose: Infused Lisinopril (Lisinopril 10 Mg Tab) 10 mg PO QAM [facility] Stop: 08/01/22 08:59 Meclizine HCl (Meclizine Hcl 25 Mg Tab) 25 mg PO TID PRN PRN Reason: Dizziness or Vertigo Stop: 07/30/22 11:57 Last Admin: 06/30/22 12:42 Dose: 25 mg Melatonin (Melatonin 3 Mg Tab) 3 mg PO HS PRN PRN Reason: Sleep Stop: 07/28/22 21:29 Last Admin: 06/30/22 00:19 Dose: 3 mg Metoprolol Succinate (Metoprolol Succ 25mg Ext Rel Tab) 12.5 mg PO BID [facility] Stop: 07/29/22 03:39 Last Admin: 07/01/22 19:21 Dose: 12.5 mg Miscellaneous (Remove Nicoderm Patch) 1 each N/A DAILY@0859 [facility] Stop: 07/28/22 11:13 Last Admin: 07/01/22 08:13 Dose: 1 each Nicotine (Nicotine 21 Mg/24 Hr Tdsy) 21 mg TD QAM [facility] Stop: 07/28/22 11:14 Last Admin: 07/01/22 08:12 Dose: 21 mg Nitroglycerin (Nitroglycerin Sl 0.4 Mg/Tab Tab) 0.4 mg SL Q5M PRN PRN Reason: Chest Pain Stop: 07/28/22 00:15 Prednisone (Prednisone 20 Mg Tab) 40 mg PO DAILY [facility] Stop: 07/28/22 11:14 Last Admin: 07/01/22 08:13 Dose: 40 mg Sertraline HCl (Sertraline Hcl 50 Mg Tablet) 50 mg PO DAILY [facility] Stop: 07/28/22 08:59 Last Admin: 07/01/22 08:13 Dose: 50 mg Tramadol HCl (Tramadol Hcl 50 Mg Tablet) 25 mg PO Q4H PRN PRN Reason: Pain Stop: 07/28/22 00:15
[2022-07-02] MEDS: NICOTINE 21 MG/24 HR TDSY TD SCH (08:14)
[2022-07-02] MEDS: DOXYCYCLINE HYCLATE 100 MG CAP PO SCH (08:15)
[2022-07-02] MEDS: ATORVASTATIN 10 MG TAB PO SCH (08:15)
[2022-07-02] MEDS: ASPIRIN 81 MG ECTAB PO SCH (08:15)
[2022-07-02] MEDS: predniSONE 20 MG TAB PO SCH (08:15)
[2022-07-02] MEDS: SERTRALINE HCL 50 MG TABLET PO SCH (08:15)
[2022-07-02] MEDS: METOPROLOL SUCC 25MG EXT REL TAB PO SCH (08:16)
[2022-07-02] MEDS: HEPARIN SOD 5,000 UNIT/0.5 ML VIAL SQ SCH (08:19)
[2022-07-02] MEDS ORDERED: lisinopril 10 MG TAB PO SCH (09:00)
[2022-07-02 10:30] LABS: Hematocrit (blood only) 39.9 % (40.1-51.0); Hemoglobin 13.5 g/dl (14.0-18.0); Mean Corpuscular Hemoglobin 29.5 pg (25.0-34.0); Mean Corpuscular Hgb Conc 33.8 g/dL (32.0-36.0); Mean Corpuscular Volume 87.1 fL (80.0-100.0); Mean Platelet Volume 12.4 fL (9.4-12.4); Platelet Count 176 K/uL (130-400); RDW Coefficient of Variation 15.8 % (11.5-14.5); RDW Standard Deviation 49.3 fL (36.4-46.3); Red Blood Count 4.58 M/uL (4.63-6.08); White Blood Count 12.54 K/ul (4.8-10.8)
[2022-07-02 10:57] LABS: BUN Creatinine Ratio 54.9 (10-20); Calcium 8.7 mg/dl (8.5-10.1); Creatinine Clr Calc Pharmacy 33.7 ml/min; Est GFR (African American) 52.4 ml/min; Est GFR (Non-African American) 45.2 ml/min; Magnesium 2.2 mg/dl (1.7-2.4); Phosphorus 3.2 mg/dl (2.5-4.9); Potassium 3.9 mmol/L (3.5-5.1)
--- NOTE | 2022-07-02 11:20 | Communication Note ---
Date of Service: July 02, 2022 Note initiated in error. Refer to separate progress note.
--- NOTE | 2022-07-02 11:27 | Cardiology Progress Note ---
Date of Service July 02, 2022 Assessment & Plan (1) Acute hypoxemic respiratory failure: (2) COPD (chronic obstructive pulmonary disease): (3) Acute on chronic systolic HF (heart failure): (4) Atrial tachycardia, paroxysmal: (5) Paroxysmal VT: (6) Ischemic cardiomyopathy: Plan Patient admitted for SOB/hypoxia, acute respiratory failure, likely multifactorial with acute on chronic HFrEF (new diagnosis, but duration unknown), COPD exacerbation with b/l pleural effusions. Echo report reveals severely reduced LVEF at 20%, consistent with ischemic cardiomyopathy. This is likely a new finding of a chronic problem. No recent echo in medical records. He was tachycardic on admission with frequent ventricular ectopy and non sustained runs of VT. HR's and ventricular ectopy now improving low dose metoprolol succinate. His low BP limits dose of beta shanna. He continues to have brief non sustained runs of VT, most during sleep. Would benefit from Life Vest upon discharge to prevent ventricular arrhythmias and SCD. He is agreeable and [employer] rep to come today to fit patient for Life vest prior to discharge. Given his underling cardiomyopathy, recommend proceeding with outpatient cardiac MRI for viability of his myocardium. this will be ordered and arranged. renal function improving, possibly new baseline with creatinine of around 1.4. Resume lower dose lisinopril 10 mg daily Continue metoprolol succinate 25 mg daily May benefit from low dose furosemide 20 mg // on discharge. Continue ASA, statin. Will need to monitor renal function closely upon discharge and prior to cardiac MRI. Case to be discussed with Dr. Fitzpatrick. Admission and Anticipated Discharge Date Admission Date: June 27, 2022 Supervising Physician Co-Signing Physician Notes Supervising Physician Attestation: I have personally performed a history and physical examination on the patient. I agree with the physician mobile unit assistant's findings and plan as documented with the following additions. Subjective: Patient without subjective complaints. Telemetry as noted by Mrs Eason. Exam: Pulmonary: Mildly reduced breath sounds at the bases, no rales rhonchi or wheezing Cardiovascular regular rhythm, no murmurs, no edema, neck veins flat Data: Creatinine today 1.44, EGFR at 45.2 mL/min/m Assessment and Plan: Acute heart failure with reduced ejection fraction, severe left ventricular systolic dysfunction, likely due to ischemic cardiomyopathy -Status post right thoracentesis 06/29/2022, yielding 1.1 L transudative fluid. Cytology negative. -Patient agreeable to [employer] LifeVest, as bridge therapy, pending further work-up. -This is supposed to be fitted around noontime today After LifeVest in place, stable for discharge on following medications: Aspirin 81 mg daily Atorvastatin 10 mg daily Metoprolol succinate 25 mg by mouth daily Lisinopril 10 mg daily Furosemide 20 mg Tuesday, Tuesday, Tuesday Patient should likely complete course of oral prednisone taper and doxycycline. -Outpatient cardiology follow-up, and arrangements for cardiac MRI will be made by our service. Dwight Fitzpatrick, DO Subjective Patient resting in bed comfortably. Denies acute complaints. Wheezing and respiratory status improved from admission. Likely at baseline. Patient hoping for discharge today. Agreeable to LifeVest and this has been arranged and will be fitted today prior to discharge. No SOB or CP. Tolerating meds. Review of Systems Review of Systems: All systems reviewed & are unremarkable except as noted in HPI & below Physical Exam Constitutional: well developed; no acute distress Neck: trachea midline, no thyromegaly Respiratory: no respiratory distress and no labored breathing Auscultation: + diminished lung sounds (bases b/l) and + wheezes (expiratory b/l) Cardiovascular: Rate/Rhythm: regular rate and regular rhythm (with ectopy) Heart Sounds: normal S1 and + murmur (I/ systolic murmur) Vessels: no JVD Extremities: no edema Gastrointestinal (Abdomen): normal bowel sounds, soft, nontender, no hepatosplenomegaly Skin: no rashes, warm and dry Neurologic: PERRL, EOMI, accommodation nl, no face palsy, no dysarthria Psychiatric: A+Ox3, euthymic affect Results & Data ([facility]) Vital Signs (Past 12 Hours) Vital Signs Temp Pulse Pulse Resp BP Pulse Ox O2 Del Method 07/02/22 09:01 68 07/02/22 08:37 Room Air 07/02/22 07:35 54 L 18 94 Room Air 07/02/22 07:27 36.3 C L 67 18 110/73 93 Room Air 07/02/22 03:12 36.6 C 69 18 121/75 94 Room Air 07/02/22 00:05 Room Air 07/02/22 00:08 69 16 94 Room Air Laboratory Results CBC 07/02/22 Range/Units 09:48 WBC 12.54 H (4.8-10.8) K/ul RBC 4.58 L (4.63-6.08) M/uL Hgb 13.5 L (14.0-18.0) g/dl Hct 39.9 L (40.1-51.0) % Plt Count 176 (130-400) K/uL Comprehensive Metabolic Panel 07/02/22 Range/Units 09:48 Sodium 143 (136-145) mmol/L Potassium 3.9 (3.5-5.1) mmol/L Chloride 110 H (98-107) mmol/L Carbon Dioxide 24 (21-32) mmol/L BUN 79 H (6-23) mg/dl Creatinine 1.44 H (0.6-1.4) mg/dl Glucose 135 H (70-99(Fasting)) mg/dl Calcium 8.7 (8.5-10.1) mg/dl Intake and Output 07/01/22 07/02/22 07/02/22 22:59 06:59 14:59 Intake Total 200 / 350 150 / 350 Output Total 500 / 500 Balance -300 / -150 150 / -150 Intake: Oral 200 / 350 150 / 350 Output: Urine 50 / 50 Urine Amount (Catheter) 450 / 450 Peña/Indwelling 450 / 450 Other: Weight 60.9 kg Diagnostic Findings Telemetry reviewed - NSR with PAC's. several 2-3 beat runs of VT overnight. 7 beat run of VT this morning around 7:40 Medications Administered Current Inpatient Medications Acetaminophen (Acetaminophen 325 Mg Tab) 650 mg PO Q4H PRN PRN Reason: Pain or Fever Stop: 07/28/22 00:15 Albuterol (Albut/Ipratrop 3mg/0.5mg Neb 3 Ml Vial) 3 ml NEB Q6R FRANCISCO; Protocol Stop: 07/28/22 12:59 Last Admin: 07/02/22 07:34 Dose: 3 ml Aspirin (Aspirin 81 Mg Ectab) 81 mg PO DAILY [facility] Stop: 07/28/22 08:59 Last Admin: 07/02/22 08:15 Dose: 81 mg Atorvastatin Calcium (Atorvastatin 10 Mg Tab) 10 mg PO DAILY [facility] Stop: 07/28/22 08:59 Last Admin: 09/16/22 08:15 Dose: 10 mg Doxycycline Hyclate (Doxycycline Hyclate 100 Mg Cap) 100 mg PO BID [facility] Stop: 07/05/22 10:14 Last Admin: 07/02/22 08:15 Dose: 100 mg Heparin Sodium (Porcine) (Heparin Sod 5,000 Unit/0.5 Ml Vial) 5,000 units SQ Q12 [facility] Stop: 07/30/22 08:59 Last Admin: 07/02/22 08:19 Dose: 5,000 units Promethazine HCl 6.25 mg/ (Sodium Chloride) 50.25 mls @ 201 mls/hr IV Q6H PRN PRN Reason: Nausea And Vomiting Stop: 07/28/22 00:15 Last Infusion: 06/30/22 13:32 Dose: Infused Lisinopril (Lisinopril 10 Mg Tab) 10 mg PO QAM [facility] Stop: 08/01/22 08:59 Last Admin: 07/02/22 08:17 Dose: 10 mg Meclizine HCl (Meclizine Hcl 25 Mg Tab) 25 mg PO TID PRN PRN Reason: Dizziness or Vertigo Stop: 07/30/22 11:57 Last Admin: 06/30/22 12:42 Dose: 25 mg Melatonin (Melatonin 3 Mg Tab) 3 mg PO HS PRN PRN Reason: Sleep Stop: 07/28/22 21:29 Last Admin: 06/30/22 00:19 Dose: 3 mg Metoprolol Succinate (Metoprolol Succ 25mg Ext Rel Tab) 12.5 mg PO BID [facility] Stop: 07/29/22 03:39 Last Admin: 07/02/22 08:16 Dose: Not Given Miscellaneous (Remove Nicoderm Patch) 1 each N/A DAILY@0859 [facility] Stop: 07/28/22 11:13 Last Admin: 07/02/22 08:14 Dose: 1 each Nicotine (Nicotine 21 Mg/24 Hr Tdsy) 21 mg TD QAM [facility] Stop: 07/28/22 11:14 Last Admin: 07/02/22 08:14 Dose: 21 mg Nitroglycerin (Nitroglycerin Sl 0.4 Mg/Tab Tab) 0.4 mg SL Q5M PRN PRN Reason: Chest Pain Stop: 07/28/22 00:15 Prednisone (Prednisone 20 Mg Tab) 40 mg PO DAILY [facility] Stop: 07/28/22 11:14 Last Admin: 07/02/22 08:15 Dose: 40 mg Sertraline HCl (Sertraline Hcl 50 Mg Tablet) 50 mg PO DAILY [facility]ISCO Stop: 07/28/22 08:59 Last Admin: 07/02/22 08:15 Dose: 50 mg Tramadol HCl (Tramadol Hcl 50 Mg Tablet) 25 mg PO Q4H PRN PRN Reason: Pain Stop: 07/28/22 00:15 (1) COPD (chronic obstructive pulmonary disease) COPD type: COPD with acute exacerbation Qualified Code(s): J44.1 - Chronic obstructive pulmonary disease with (acute) exacerbation
--- NOTE | 2022-07-02 12:27 | Discharge Summary ---
Date of Service July 02, 2022 Admission HPI Per Admitting Provider History obtained from patient, family, and records. Medical history significant for CAD status post stent, hypertension, hyperlipidemia, beta-shanna intolerance (bradycardia) as per records, ongoing tobacco abuse. 1 week history of cough symptoms productive of clear sputum. No chest pain. Worsening shortness of breath. No unusual fluid retention. No known recent sick contacts. Patient completed COVID-19 vaccination. Patient received Albuterol, methylprednisolone, and ceftriaxone at the ER for possible COPD exacerbation. Lorazepam given for anxiety. Patient currently lethargic. O2 sats noted to be 80s on room air. Medical History as above Surgical History : Leg fracture surgery Family History : Heart disease Personal/Social history : Ongoing tobacco pipe use, no EtOH intake, retired factory employee Admission Exam Per Admitting Provider GENERAL: Lethargic, slightly hard of hearing, minimal respiratory distress SKIN: Normal color, warm HEENT: Slana palpebral conjunctivae, no ptosis, dry buccal mucosa, nasal cannula in place NECK : Supple, no tenderness CHEST : Decreased breath sounds, expiratory wheezes, no tenderness HEART : Tachycardic, no obvious murmurs ABDOMEN: Some distention, nontender EXTREMITIES : No LE swelling, no LE tenderness, no other conspicuous deformities noted NEUROLOGIC : Lethargic, no facial asymmetry, gait and stance not assessed Principal Diagnosis Acute hypoxemic respiratory failure Acute on chronic systolic HF (heart failure) Paroxysmal VT Ischemic cardiomyopathy COPD Discharge Exam General Appearance: thin elderly M in no apparent distress Head: normocephalic, Atraumatic Eyes: normal inspection, EOMI Neck: supple Respiratory/Chest: No accessory muscle use, mild crackles noted, no wheezing Cardiovascular: S1, S2, + murmur Abdomen/GI:Soft, Non tender, Bowel sounds present Extremities/Musculoskeletal:normal inspection, 1+ B/L LE edema Neurologic/Psych:AAOX3, grossly no focal neurological deficits Skin: normal color, warm Discharge Data Allergies Allergy/AdvReac Type Severity Reaction Status Date / Time No Known Allergies Allergy Verified 06/27/22 19:54 Consultations 06/27/22 19:21 ED Decision to Admit Stat 06/28/22 00:16 Consult Cardiology Routine 06/29/22 10:31 Consult Pulmonology Routine Ordered Studies 06/27/22 21:31 CT head/brain wo con Urgent Findings: The paranasal sinuses and mastoid air cells are clear. The calvarium and skull base are intact. There is no mass, hematoma, midline shift, acute infarct. White matter hypodensity is nonspecific but suggestive of microvascular ischemic change. The ventricles and sulci demonstrate mild age-related involutional changes. Impression: No acute intracranial abnormality. 06/29/22 16:05 US point of care ultrasound Stat 06/29/22 16:41 US point of care ultrasound Urgent Hospital Course (1) Acute hypoxemic respiratory failure: Acute hypoxemic respiratory failure -resolved Likely secondary to CHF and copd exacerbation Supplemental oxygen as needed - currently on RA Monitor Acute on chronic systolic heart failure B/L Pleural effusion --CXR:Cardiomegaly with unchanged pulmonary edema. Stable right greater than left layering pleural effusions with bibasilar consolidation. --ECHO: Left ventricle is moderately dilated. EF 20 to 25%. Diffuse hypokinesis to akinesis. Aortic valve sclerosis moderate, without significant aortic valvular stenosis. Mild aortic regurgitation. Moderate mitral regurgitation. Moderate sized left pleural effusion. Moderate size right pleural effusion --Received IV lasix Monitor I/Os, daily weight Monitor Volume status Appreciate Cardiology Input May need ischemic work-up once respiratory status improved S/ p R thoracentesis (06/29), removal of 1.1L, likely transudate 2/2 CHF, cytology negative Cr improved at 1.4 Continue metoprolol succinate 25 mg daily (new medication) -Prior to hospital dose of lisinopril 20 mg daily - dose to 10 mg -Continue aspirin 81 mg daily, atorvastatin 10 mg daily -Plan to discharge home today (07/02) with [employer] Life Vest. Acute Bronchitis Suspected COPD Exacerbation Ongoing tobacco abuse Started on doxycycline Continue prednisone, and fabiola de la o Counseled to quit smoking Needs outpatient PFTs Supplemental oxygen as needed Consulted Pulmonology Acute Kidney Injury Likely due to diuretics Avoid nephrotoxic agents as able next Cr: 1.4 today - likely new baseline NSVT Continue metoprolol Replace electrolytes as needed Monitor further plan as above (life vest and further cardiology work-up as outpt, cardiac MRI) CAD S/P Stent Continue aspirin, Lipitor, metoprolol Hypertension Continue metoprolol - new medication 25 mg daily lisinopril- decrease dose to 10 mg Monitor Hyperlipidemia - cont. on atorvastatin 10 mg Prediabetes: HbA1c 5.8 Total Time Total Time Spent Total Time Spent (In Minutes): 40 Discharge Plan Discharge Items Patient Disposition: Home - Self-Care Reason For Visit: RESP FAILURE Discharge Diagnosis: Acute hypoxemic respiratory failure Acute on chronic systolic HF (heart failure) Paroxysmal VT Ischemic cardiomyopathy COPD Activity: Per Instructions section Non-emergency contact: Primary Care Provider and Retail Support Specialist Call non-emergency contact if: you have any medication questions and your symptoms worsen Follow-up/Referrals: Sourav Land PA-C [Outside Practitioners] - (Date & Time 07/06/2022 8:40 AM Provider Sourav Land PA-C Department General Internal Medicine [facility] ) Diet: Heart Healthy and Low Sodium (2gm) Addtl Attending Provider Instructions: Follow up with your primary care provider and operations professional. Follow-up appointment with primary care doctor was scheduled for you for July 06. You will be contacted about your appointment with operations professional. Continue taking your medications - aspirin and atorvastatin. Your lisinopril dose was decreased to 10 mg daily. You were started on a new medication, metoprolol - take 25 mg daily. In addition, take furosemide/Lasix 20 mg on Tuesday and Tuesday. Finish antibiotic treatment with doxycycline for 2 more days. Strongly recommend tobacco use cessation. Consider calling 1 bretta[employer]ved smoking cessation line. Addtl Ekg/Ecg Technician Provider Instructions: Call your Primary Care doctor if any of the following symptoms or problems start or get worse: * Shortness of breath or difficulty breathing * Wake up at night short of breath * Chest pain * Cough * Swelling of your hands, feet, or legs * More fatigued or tired with your normal activity * Palpitations - sudden fast heart beats WEIGHT * Weigh yourself every morning after using the bathroom. * Use the same scale. * Wear the same amount of clothing. * Write your weight down on a chart. * Call your Primary Care doctor if you gain more than 2-3 pounds in 1-2 days. MEDICATIONS * Use this discharge instruction sheet for medication instructions. * Take your medications at the time your doctor ordered. * Do not skip a dose of your medicines. * If you miss a dose of medicine, take it as soon as possible, but DO NOT DOUBLE A DOSE. * Read your medicine information when you get home. * Know all of the side effects of your medicine. If in doubt, ask your pharmacist * Call your Primary Care doctor's office if you have any side effects. * Be sure all of your doctors know what medicine and herbs you take (including cold, flu, and herbal medicine). Take the following with you to your follow-up doctor appointments: * Weight Chart * Medication List * List of questions Do not drink excessive alcohol, beer or wine. Pending Studies at Discharge: No Stand-Alone Forms: My [facility] [employer], Smoking Cessation Medications and DC Order Prescriptions: New doxycycline hyclate 100 mg Capsule 100 mg PO BID 2 Days Qty: 4 0RF lisinopril 10 mg Tablet 10 mg PO QAM 30 Days Qty: 30 0RF metoprolol succinate [Toprol XL] 25 mg tablet extended release 24 hr 25 mg PO DAILY Qty: 30 0RF furosemide 20 mg tablet 20 mg PO UD Qty: 20 0RF Rx Instructions: Take M, W, F Continued atorvastatin 10 mg tablet 10 mg PO DAILY meclizine 25 mg tablet 25 mg PO TID PRN (Reason: Dizziness) sertraline 50 mg tablet 50 mg PO DAILY aspirin 81 mg Tablet,Delayed Release (Dr/Ec) 81 mg PO DAILY Discontinued lisinopril 20 mg tablet 20 mg PO DAILY Discharge Orders: Discharge Order (Routine); Ordered 07/02/22 Ordered By: Bakari Perez Admission Data Admit Date/Time: 06/27/22 21:33 Attending Provider: Bakari Perez Admit Provider: Ritesh Denney Primary Care Provider: Triston Spears Other Providers: Ritesh Denney ; Javier Villegas ; Dwight Fitzpatrick ; Andrei Baker ; Nba Kessler ; LexyMike najera ; Jerrod Sandy ; Donna Eason ; Neena Courtney ; Nadiya Sargent ; Kirk Storm ; Yair Parsons ; Billy Leo.
== END 2022-07-02 14:13 | disposition home or self-care (01) | DRG 291 ==
LOC: ED 16:57 → SUATTDRO 21:33 → 4W 21:33